=== PATIENT | female | born 1965 | race Caucasian/White ===

== ENCOUNTER 2016-06-24 13:33 | Emergency (ER) | payer MEDICARE, MEDICAID ==
[2016-06-24] MEDS ORDERED: ALPRAZolam TAB* 0.25 MG PO ONE (19:15)
[2016-06-24] MEDS ORDERED: ALPRAZolam TAB* 0.5 MG PO ONE ×2 (20:00)
[2016-06-24 20:29] VITALS: BP 134/96
--- NOTE | 2016-06-24 21:44 | ED ---
Efrain Salinas Adam, scribed for Rinku Cardona MD on 06/24/16 at 1919 . Substance Abuse/Use - HPI Summary HPI Summary: A 51 y/o female presents to the ED after not having had Xanax for 7 days. Patient is prescribed this medication and states that she dropped the remaining pills down the drain last week. She is scheduled for a refill at her PCP next week. Her symptoms include vomiting, diarrhea, unable to eat or drink, and unable to sleep for 3 nights. She denies fever. Her PMHx is positive for anxiety , depression, scleroderma, and COPD. FHx is positive for cardiac disease. - History Of Current Complaint Chief Complaint: EDSubstanceAbuse Stated Complaint: RX REFILL Time Seen by Provider: 06/24/16 19:17 Hx Obtained From: Patient Severity Initially: Moderate Severity Currently: Mild Character: Anxious Aggravating Factor(s): Other - Not taking Xanax for 7 days Alleviating Factor(s): Nothing Associated Signs And Symptoms: Vomiting, Diarrhea, Other: - Anxious, not able to eat or drink, not able to sleep for 3 days - Allergies/Home Medications Allergies/Adverse Reactions: Allergies Allergy/AdvReac Type Severity Reaction Status Date / Time Codeine Allergy Severe suicidal Verified 03/18/16 11:28 Adhesive Tape Allergy Mild pulls skin Verified 03/18/16 11:28 off PMH/Surg Hx/FS Hx/Imm Hx Endocrine/Hematology History: Reports: Other Endocrine/Hematological Disorders - scleroderma Denies: Hx Diabetes, Hx Anemia, Hx Unexplained Bleeding Cardiovascular History: Denies: Hx Aneurysm, Hx Angina, Hx Angioplasty, Hx Auto Implanted Cardiovert Defib, Hx Cardiac Arrest, Hx Cardiomegaly, Hx Congenital Heart Disease, Hx Congestive Heart Failure, Hx Coronary Artery Disease, Hx Deep Vein Thrombosis, Hx Embolism, Hx Hypercholesterolemia, Hx Hypotension, Hx Hypertension, Hx Pacemaker/ICD, Hx Peripheral Vascular Disease, Hx Rheumatic Fever, Hx Syncope, Hx Valvular Heart Disease, Other Cardiovascular Problems/Disorders Respiratory History: Reports: Hx Chronic Bronchitis, Hx Chronic Obstructive Pulmonary Disease (COPD) GI History: Denies: Other GI Disorders History: Denies: Hx Renal Disease, Other Problems/Disorders Musculoskeletal History: Reports: Hx Back Problems Denies: Hx Arthritis, Hx Bursitis, Hx Congenital Bone Abnormalities, Hx Fibromyalgia, Hx Gout, Hx Orthopedic Injury, Hx Osteoporosis, Hx Scoliosis, Hx Tendonitis, Other Musculoskeletal History Sensory History: Reports: Hx Contacts or Glasses - long distance use only Denies: Hx Cataracts, Hx Eye Injury, Hx Eye Prosthesis, Hx Glaucoma, Hx Legally Blind, Hx Macular Degeneration, Hx Vision Problem, Hx Deafness, Hx Hearing Aid, Hx Hearing Problem, Other Sensory Impairments Opthamlomology History: Reports: Hx Contacts or Glasses - long distance use only Denies: Hx Cataracts, Hx Eye Injury, Hx Eye Prosthesis, Hx Glaucoma, Hx Legally Blind, Hx Macular Degeneration, Hx Vision Problem, Other Sensory Impairments Neurological History: Denies: Other Neuro Impairments/Disorders Psychiatric History: Reports: Hx Anxiety, Hx Depression Denies: Hx Panic Disorder, Other Psychiatric Issues/Disorders - Cancer History Hx Chemotherapy: No Hx Radiation Therapy: No - Surgical History Surgery Procedure, Year, and Place: left knee arthroscopy. hysterectomy. ACL RECONSTRUCTION Hx Anesthesia Reactions: No - Immunization History Date of Tetanus Vaccine: 2013 Date of Influenza Vaccine: Fall 2013 Infectious Disease History: No Infectious Disease History: Denies: Hx of Known/Suspected MRSA, Hx Shingles, Hx Tuberculosis, Hx Known/ Suspected VRE, Hx Known/Suspected VRSA, History Other Infectious Disease, Traveled Outside the [place] in Last 30 Days - Family History Known Family History: Positive: Cardiac Disease - Social History Alcohol Use: None Substance Use Type: Reports: None Smoking Status (MU): Former Smoker Type: eCigarettes Amount Used/How Often: 1.5 ppd Length of Time of Smoking/Using Tobacco: 36 years Have You Smoked in the Last Year: No Review of Systems Constitutional: Negative Negative: Fever Eyes: Negative ENT: Negative Cardiovascular: Negative Respiratory: Negative Positive: Vomiting, Diarrhea Positive: other - Decreased appetite Musculoskeletal: Negative Skin: Negative Neurological: Negative Positive: Anxious, Other - Unable to sleep for 3 nights All Other Systems Reviewed And Are Negative: Yes Physical Exam - Summary Physical Exam Summary: General: Comfortable, pleasant, alert, HEENT: Moist mucosa Neck: soft, supple, no adenopathy, no edema Heart: S1, S2, RRR, no murmurs, rubs, or gallops Lungs: Clear to auscultation, breathing comfortable, no wheezes or rales Abdominal: Soft, flat, nontender Extremities: No edema, no calf tenderness Neuro: Alert and oriented x 3, CN II-XII intact, walks into room without wide base gait or imbalance Psych: Logical, coherent, good eye contact, no slowing or agitation Vital Signs On Initial Exam: Initial Vitals Temp Pulse Resp BP Pulse Ox 98.9 F 101 16 128/80 100 06/24/16 13:34 06/24/16 13:34 06/24/16 13:34 06/24/16 13:34 06/24/16 13:34 Diagnostics - Vital Signs Vital Signs Temp Pulse Resp BP Pulse Ox 06/24/16 18:38 98.8 F 90 20 136/83 100 06/24/16 17:41 99.0 F 92 20 122/75 99 06/24/16 16:32 98.2 F 87 20 142/73 98 06/24/16 15:40 97.6 F 85 20 139/71 97 06/24/16 13:34 98.9 F 101 16 128/80 100 - Laboratory Lab Statement: Any lab studies that have been ordered have been reviewed, and results considered in the medical decision making process. - EKG 13:40 Cardiac Rate: NL - 85 EKG Rhythm: Sinus Rhythm ST Segment: Normal Course/Dx - Course Assessment/Plan: She presents without having had xanax for about a week. She is anxious with poor sleep and is due to get a refill next week at PCP's office. We will give her one pill now, and one to go home with. She mentions withdrawl symptoms, however, vital signs, mentation, mental status all suggest uncomplicated withdrawl. - Diagnoses Differential Diagnosis/HQI/PQRI: Positive: Alcohol Withdrawal, Bipolar Disorder , Depression, Drug Abuse, Drug Withdrawal, Suicidal Risk Provider Diagnoses: Benzodiazepine withdrawal Discharge - Discharge Plan Condition: Good Disposition: HOME Patient Education Materials: Anxiety (ED) Referrals: Rafita Weems MD [Primary Care Provider] - The documentation as recorded by the Efrain umana Adam accurately reflects the service I personally performed and the decisions made by me, Rinku Cardona MD.
== END 2016-06-24 20:15 | disposition home or self-care (01) ==
LOC: ED 13:33
DX: F13.239 Sedative, hypnotic or anxiolytic dependence with withdrawal, unspecified (principal); T42.4X5A Adverse effect of benzodiazepines, initial encounter; Y92.9 Unspecified place or not applicable; F17.210 Nicotine dependence, cigarettes, uncomplicated; F41.9 Anxiety disorder, unspecified; J44.9 Chronic obstructive pulmonary disease, unspecified; M34.9 Systemic sclerosis, unspecified; Z88.5 Allergy status to narcotic agent
CPT/HCPCS: 93005; 99282; A9270-GY

== ENCOUNTER 2017-02-12 10:52 | Inpatient (IN) | payer MEDICARE, MEDICAID ==
--- NOTE | 2017-02-06 23:06 | HP ---
HISTORY AND PHYSICAL: DATE OF SURGERY: 02/12/17 DATE OF OFFICE VISIT: 02/06/17 SURGEON: Opal Ace MD * (DICTATED BY JANETH MOMIN) PROCEDURE: Right total knee arthroplasty. CHIEF COMPLAINT: Right knee pain. HISTORY OF PRESENT ILLNESS: Ms. Culver is a 51-year-old female with complaints of right knee pain secondary to end-stage osteoarthritis. She has failed conservative management and has elected to proceed with a right total knee arthroplasty. PAST MEDICAL HISTORY: 1. Hypertension. 2. COPD. 3. GERD. 4. Scleroderma. 5. Aortic stenosis. PAST SURGICAL HISTORY: 1. Hysterectomy. 2. Breast biopsy. 3. Left knee ACL reconstruction. MEDICATIONS: 1. Probiotic acidophilus. 2. Prochlorperazine maleate 10 mg. 3. Methotrexate 2.5 mg 6 tabs by mouth every week. 4. Oxygen as needed. 5. Aleve as needed. 6. Hydroxychloroquine sulfate 200 mg twice daily. 7. Folic acid every day. 8. Lexapro 20 mg every day. 9. Ambien 10 mg q.h.s. 10. Xanax 0.5 mg 3 times a day as needed. 11. MS Contin 10 mg every 8 hours as needed. 12. Famotidine 20 mg twice daily. 13. Triamterene and hydrochlorothiazide 37.5-25 mg every day. 14. Advair Diskus. 15. Albuterol sulfate. 16. Morphine sulfate 30 mg 2 tabs up to 5 times daily. 17. Alclometasone dipropionate. 18. Furosemide 20 mg 2 tabs everyday. 19. Potassium chloride. 20. . 21. Mirtazapine. 22. Nebulizer. 23. Lovastatin 10 mg daily. 24. Polyethylene glycol. 25. Olopatadine hydrochloride ophthalmic solution. ALLERGIES: To CODEINE, which causes suicidal ideations and ULTRACET. FAMILY HISTORY: Cancer, diabetes, and hypertension. SOCIAL HISTORY: She is a 51-year-old female, she lives alone. She does not smoke, use drugs or alcohol. REVIEW OF SYSTEMS: A complete 14-point review of systems is reviewed with the patient, was all negative or noncontributory. PHYSICAL EXAMINATION GENERAL: She is well developed, well nourished, in no acute distress. VITAL SIGNS: She stands 5 feet 7 inches tall, weighs 260 pounds, her blood pressure is 132/73, her heart rate is 104. HEENT: Normocephalic, atraumatic. NECK: Supple. No palpable lymph nodes. PULMONARY: Lungs are clear to auscultation bilaterally. CARDIO: Regular rate and rhythm. Strong S1 and S2. ABDOMEN: Soft, nontender, and nondistended. NEUROLOGIC: She is alert and oriented x3. Cranial nerves II through XII are intact. MUSCULOSKELETAL: Right lower extremity, the skin is intact. There are no open wounds or abrasions. She has tenderness over the medial and lateral joint line. Her lower extremity muscle group strength is intact at 5/5. She has 2+ dorsalis pedis pulses and intact sensation. IMPRESSION AND PLAN: Ms. Culver is 51-year-old female with complaints of right knee pain secondary to advanced osteoarthritis. She has failed conservative management and has elected to proceed with a right total knee arthroplasty, which is scheduled for 02/12/17, with Dr. Ace. Dr. Ace discussed the risks and benefits of the surgery and all of her questions were answered. She will follow up with Dr. Ace in 2 weeks after the surgery. JANETH MOMIN [id number]/[facility] #: [id number] [facility] PARTNERSKevin
[~2017-02-12 10:52] MED LIST: Buffered Lidocaine 0.9% SYRIN* 5 ML/SYR SYRINGE INTRADERM ONE; Famotidine IV* 10 MG/ML 2 ML (20 mg) IV ONE; Morphine INJ* 2 MG/ML 1 ML CARPUJECT IV PRN; PROCHLORPERAZINE INJ 5 MG/ML 2 ML VIAL IV PRN; fentaNYL* 50 MCG/ML 2 ML VIAL (100 MCG VIAL) IV PRN
[2017-02-12] MEDS ORDERED: Famotidine IV* 10 MG/ML 2 ML (20 mg) ONE (10:56)
[2017-02-12] MEDS ORDERED: Buffered Lidocaine 0.9% SYRIN* 5 ML/SYR SYRINGE ONE (10:56)
[2017-02-12] MEDS ORDERED: ceFAZolin 2 GM PREMIX (*) 50 ML IVPB ONE (10:56)
[2017-02-12] MEDS ORDERED: Midazolam* 1 MG/ML 10 ML VIAL (10 MG) ONE (11:50)
[2017-02-12] MEDS ORDERED: fentaNYL* 50 MCG/ML 2 ML VIAL (100 MCG VIAL) ONE (11:50)
[2017-02-12] MEDS ORDERED: KETAMINE HCL* 50 MG/ML 10 ML VIAL ONE (11:50)
[2017-02-12] MEDS ORDERED: Mouth Piece, Nicotine* 1 EACH CARTRIDGE INH ONE (13:00)
[2017-02-12] MEDS ORDERED: Nicotine Inhaler* 10 MG AMP INH ONE (13:00)
[2017-02-12] MEDS ORDERED: Midazolam* 1 MG/ML 5 ML VIAL (5 MG) ONE (14:02)
[2017-02-12] MEDS ORDERED: Morphine INJ* 10 MG/ML 1 ML CARPUJECT ONE (14:03)
[2017-02-12] MEDS ORDERED: Hetastarch in NS* 200 ML IV PRN (14:24)
[2017-02-12] MEDS ORDERED: Ondansetron INJ* 2 MG/ML VIAL IV PRN (14:24)
[2017-02-12] MEDS ORDERED: Lactated Ringers 500 ml BAG* 500 ML IV PRN (14:24)
[2017-02-12] MEDS ORDERED: EPHEDrine (Pressors)* 50 MG/ML VIAL IV PUSH PRN (14:24)
[2017-02-12] MEDS ORDERED: PROCHLORPERAZINE INJ 5 MG/ML 2 ML VIAL IV PRN (14:24)
[2017-02-12] MEDS ORDERED: Ropivacaine 0.2% EPIDURAL* 200 MG/100 ML BAG EPIDURAL SCH (15:00)
[2017-02-12] MEDS ORDERED: Hetastarch in NS* 500 ML IV ONE (15:15)
[2017-02-12] MEDS ORDERED: Ropivacaine 0.2% EPIDURAL* 200 MG/100 ML BAG EPIDURAL ONE (15:44)
[2017-02-12 16:01] LABS: BUN/Creatinine Ratio 16.9 (8-20); Calcium 9.5 mg/dL (8.6-10.3); EGFR African American 61.6 (>60); EGFR Non-African American 47.9 (>60); Potassium 3.6 mmol/L (3.5-5.0)
[2017-02-12] MEDS ORDERED: diPHENhydraMINE IV* 50 MG/ML 1 ml VIAL (BENADRYL) IV PRN (16:23)
[2017-02-12] MEDS ORDERED: Magnesium Hydroxide LIQ* 30 ML UDC PO PRN (16:23)
[2017-02-12] MEDS ORDERED: Polyethylene Glycol 3350* 17 GM PACKET PO PRN (16:23)
[2017-02-12] MEDS ORDERED: Bisacodyl SUPP* 10 MG SUPP PR PRN (16:23)
[2017-02-12] MEDS ORDERED: Phenylephrine INJ* 10 MG/ML 1 ML VIAL (10 MG) ONE (16:24)
[2017-02-12] MEDS ORDERED: Lidocaine 2% PF * 5 ML VIAL ONE (16:24)
[2017-02-12] MEDS ORDERED: Polyethylene Glycol 3350 BTL* 238 GM BTL PO PRN (16:31)
[2017-02-12] MEDS ORDERED: Albuterol HFA INHALER* 8 gm MDI INH PRN (16:31)
[2017-02-12] MEDS ORDERED: Albuterol 2.5 MG/3 ML NEB.SOL* (0.083%) INH PRN (16:31)
[2017-02-12] MEDS ORDERED: ceFAZolin 1 GM VIAL(*) 1 GM in NS 0.9% 50 ML* 50 ML IVPB SCH (17:00)
--- NOTE | 2017-02-12 17:04 | RAD ---
INDICATION: Status post right total knee arthroplasty COMPARISON: November 14, 2016 TECHNIQUE: A portable 2 view examination is submitted were obtained. FINDINGS: There is right knee arthroplasty. Both femoral and tibial components appear well seated. There is no overlying cooling jacket. IMPRESSION: POSTOPERATIVE RIGHT KNEE ARTHROPLASTY.
--- NOTE | 2017-02-12 19:04 | RAD ---
INDICATION: Right shoulder pain COMPARISON: None TECHNIQUE: Routine frontal, Y and axial views were obtained. FINDINGS: There is AC joint osteoarthritis. There is minor spurring about the inferior glenoid. There is no evidence of dislocation or subluxation. The soft tissues are normal. IMPRESSION: MILD A.C. AND GLENOHUMERAL OSTEOARTHRITIS.
[2017-02-12] MEDS ORDERED: Warfarin TAB(*) 6 MG PO ONE (21:00)
[2017-02-12] MEDS: ceFAZolin 1 GM in Dextrose (*) 1 GM/50 ML BAG IVPB SCH (21:55)
--- NOTE | 2017-02-12 21:59 | CONS ---
CC: Dr. Weems * CONSULTATION REPORT: REFERRING PHYSICIAN: Dr. Opal Ace. PRIMARY CARE DOCTOR: Dr. Weems. MY ATTENDING PHYSICIAN WHILE IN THE HOSPITAL: Dr. Jayla Beltran (DICTATED BY JANETH SPENCE) REASON FOR CONSULTATION: Co-management of comorbid medical conditions. HISTORY OF PRESENT ILLNESS: Ms. Culver is a 51-year-old female with past medical history significant for hypertension, COPD, scleroderma, and aortic stenosis, who is currently postoperative for a right total knee arthroplasty. The patient states she is feeling good, her only pain is in her shoulder, which is preexisting from 2 mechanical falls earlier this month. The patient's pain in her surgical site is well controlled with spinal anesthesia. The patient has no feeling from waist down. The patient denies shortness of breath, chest pain, numbness or tingling in her hands or feet, abdominal pain, recent illnesses, fevers, chills, nausea or vomiting, change in vision or dizziness. EBL for the surgery was 300. There were no other complications. The patient states she took all of the medications that are normally scheduled for her this morning including her antihypertensive Diazide. The patient denies history of diabetes or hepatitis. PAST MEDICAL HISTORY: Hypertension, COPD, GERD, scleroderma, aortic stenosis and insufficiency, osteoarthritis. PAST SURGICAL HISTORY: Hysterectomy, breast biopsy, left knee ACL reconstruction. MEDICATIONS: 1. Probiotic acidophilus. 2. Prochlorperazine maleate 10 mg p.o. daily. 3. Methotrexate 2.5 mg 6 tabs by mouth every week. 4. Oxygen 4 L at night. 5. Hydroxychloroquine sulfate 200 mg b.i.d. 6. Folic acid daily. 7. Lexapro 20 mg daily. 8. Ambien 10 mg at night as needed. 9. Xanax 0.5 mg 3 times a day as needed. 10. MS Contin 10 mg every 8 hours as needed. 11. Famotidine 20 mg twice daily. 12. Triamterene/hydrochlorothiazide 37.5/25 mg everyday. 13. Advair Diskus 1 puff b.i.d. 14. Albuterol inhaler as needed. 15. Morphine sulfate 30 mg 2 tabs up to 5 times daily. 16. Alclometasone dipropionate 1% topically daily as needed. 17. Furosemide 40 mg daily. 18. Potassium chloride 8 mcg b.i.d. 19. Pravastatin 10 mg p.o. daily. 20. Polyethylene glycol as needed for constipation. 21. Olopatadine ophthalmic solution 1 drop to each eye daily. 22. Pentoxifylline 400 mg p.o. t.i.d. 23. Remeron 15 mg p.o. at bedtime. ALLERGIES: The patient has allergies to CODEINE, ULTRACET, LATEX and ADHESIVE TAPE. FAMILY HISTORY: The patient has family history of cancer, diabetes, and hypertension, cirrhosis, and celiac disease. SOCIAL HISTORY: The patient lives alone. She is on disability from her scleroderma. She drinks 4 cups of coffee a day. She smokes e-cigarettes. The patient denies occasional alcohol use and does not use illicit drugs. REVIEW OF SYSTEMS: A 14-point review of systems was completed. Please see all pertinent positives and negatives in the HPI. PHYSICAL EXAMINATION: Vital Signs: Temperature at 11 this morning 96.8, heart rate now 71, oxygen saturation 93%, respiratory rate 13, blood pressure 127/57. The patient is on 4 L of oxygen. General: The patient is a 51-year-old female, who appears her stated age, is lying comfortably in the stretcher in the PACU, texting on her cellphone. HEENT: Normocephalic, atraumatic. Sclerae anicteric. No conjunctival injection. Pharynx nonerythematous. Mucous membranes moist. Neck: Supple, nontender. No lymphadenopathy. No carotid bruit auscultated. Cardiac: Regular rate and rhythm. Grade 2/6 systolic murmur heard best at the right sternal border at the second intercostal space appreciated without radiation. Pulses +2 radial, dorsalis pedis, and posterior tibialis areas. No edema. Pulmonary: Clear to auscultation bilaterally. No wheezes, rales, rhonchi. Good air exchange bilaterally. Abdomen: Obese, soft, nontender, nondistended. Bowel sounds present in all 4 quadrants. Liver and spleen could not be palpated due to the patient's body habitus. Neurologic: The patient is alert and oriented x3. Cranial nerves II through XII are grossly intact. The patient's beam builder helper strength is 5/5 and equal bilaterally. Skin: The patient has rash on the face with telangiectasias. Skin otherwise pink, dry, and intact. Musculoskeletal: The patient has significant pain with movement in all planes of motion of her right shoulder and tenderness to palpation over the supraspinatus tendon and the glenoid labrum. No popping or instability noted on exam. Exam limited by pain. LABORATORY RESULTS: On morning of 02/12/17, sodium 140, potassium 3.6, chloride 101, carbon dioxide 32, anion gap 7, BUN 20, creatinine 1.18, glucose 88, calcium 9.5. IMPRESSION: The patient is a 51-year-old female, past medical history significant for chronic obstructive pulmonary disease, hypertension, scleroderma , aortic stenosis/insufficiency, and osteoarthritis, who was doing well postoperatively from her right total knee arthroplasty. 1. Postop state. The patient is doing well, is normotensive, pain control with oxycodone and Tylenol. Bowel regimen with polyethylene glycol and Colace. DVT prophylaxis with Lovenox 30 mg subcutaneous daily and bridged to warfarin. 2. Hypertension. Continue the patient's Dyazide and Lasix every morning. 3. Chronic obstructive pulmonary disease. Continue the patient's home nocturnal oxygen therapy at 4 L at night. Continue Advair Diskus home dose and albuterol nebulizations as needed for shortness of breath and wheezing. The patient is not wheezing at this time. 4. Scleroderma. Continue the patient's home immunosuppressive medications including methotrexate and hydroxychloroquine. I will order a CRP with the morning labs to assess for level of inflammation. 5. Gastroesophageal reflux disease. Continue the patient's home famotidine. 6. Aortic stenosis. The patient has no signs or symptoms indicative of congestive heart failure. Aortic stenosis murmur, minor on exam. The patient had ejection fraction of 60 on an echo in the preop period before she was cleared for surgery by her equalizing saw operator. 7. FEN. The patient is on lactated Ringer's at 100. The patient is NPO with sips and a regular diet starting tonight with dinner. 8. DVT prophylaxis. The patient is on renally dosed Lovenox and is being transitioned to warfarin. 9. SCDs while in bed. 10. Code status: The patient is a full code. DISPOSITION: Per primary team. TIME SPENT: Approximately 60 minutes were spent on this consult, 30 of which was spent [id number] with the patient obtaining history and physical with the patient. This plan has been discussed with my attending, Dr. Jayla Beltran. JANETH SPENCE [id number]/[facility] #: [id number] MARIANNE
[2017-02-12] MEDS: oxyCODONE TAB* 5 MG TAB PO PRN (22:18)
[2017-02-12] MEDS: Docusate CAP* 100 MG PO SCH (22:18)
[2017-02-12] MEDS: Hydroxychloroquine TAB* 200 MG PO SCH (22:19)
[2017-02-12] MEDS: Mometasone/Formoter 200/5 MDI INH SCH (22:19)
[2017-02-13] MEDS: oxyCODONE TAB* 5 MG TAB PO PRN ×5 (05:13→21:22)
[2017-02-13] MEDS ORDERED: Ondansetron TAB* 4 MG PO PRN (06:01)
[2017-02-13] MEDS: ceFAZolin 1 GM in Dextrose (*) 1 GM/50 ML BAG IVPB SCH ×2 (06:11→13:20)
--- NOTE | 2017-02-13 07:34 | PN ---
Progress Note - Progress Note Date of Service: 02/13/17 SOAP: Subjective: Pt. is alert, pain controlled. Objective: RLE - drain removed, tip intact. 200 cc ss drainage. distally +df/pf, full sens lt, 2+ dp pulse. Vital Signs: Temp Pulse Resp BP Pulse Ox 97.8 F 71 15 110/55 97 02/13/17 03:58 02/13/17 03:58 02/13/17 05:13 02/13/17 03:58 02/13/17 03:58 Laboratory Results - last 24 hr 02/12/17 15:24 Sodium 140 Potassium 3.6 Chloride 101 Carbon Dioxide 32 Anion Gap 7 BUN 20 Creatinine 1.18 H Est GFR ( Amer) 61.6 Est GFR (Non-Af Amer) 47.9 BUN/Creatinine Ratio 16.9 Glucose 88 Calcium 9.5 Assessment: 51 yo F pod 1 s/p RTKA Plan: need med consult wbat rle pt/ot will check labs lovenox today, coumadin tonight. plan d/c to home tomorrow 02/14
[2017-02-13] MEDS: Docusate CAP* 100 MG PO SCH ×2 (07:53→21:24)
[2017-02-13] MEDS: Triamterene/HCTZ 37.5-25 MG* CAP PO SCH (07:53)
[2017-02-13] MEDS: Hydroxychloroquine TAB* 200 MG PO SCH ×2 (07:53→21:24)
[2017-02-13] MEDS: Omeprazole CAP* 20 MG PO SCH (07:53)
[2017-02-13] MEDS: Citalopram TAB* 40 MG PO SCH (07:54)
[2017-02-13] MEDS: ALPRAZolam TAB* 0.5 MG PO SCH ×3 (07:54→21:24)
[2017-02-13] MEDS: Famotidine TAB* 20 MG PO SCH (07:54)
[2017-02-13] MEDS: Prochlorperazine TAB* 10 MG PO SCH ×2 (07:54→21:24)
[2017-02-13] MEDS: Furosemide TAB* 40 MG PO SCH (07:54)
[2017-02-13] MEDS: Olopatadine 0.1% OPHTH (NF) 1 DROP BTL BOTH EYES SCH (07:55)
[2017-02-13] MEDS: Mometasone/Formoter 200/5 MDI INH SCH ×2 (07:56→20:05)
[2017-02-13] MEDS: Hydrocortisone 1% CREAM* 30 GM TUBE TOPICAL SCH (07:56)
[2017-02-13] MEDS ORDERED: Nicotine Inhaler* 10 MG AMP ONE (08:00)
[2017-02-13] MEDS ORDERED: Nicotine Inhaler* 10 MG AMP INH PRN (08:02)
[2017-02-13 08:43] LABS: Hematocrit 29 % (35-47); Hemoglobin 9.3 g/dl (12.0-16.0); Mean Corpuscular HGB Conc 32 g/dl (31-36); Mean Corpuscular Hemoglobin 27 pg (27-31); Mean Corpuscular Volume 86 fL (80-97); Mean Platelet Volume 7 um3 (7.4-10.4); Red Blood Count 3.38 10^6/ul (4.0-5.4); Red Cell Distribution Width 17 % (10.5-15); White Blood Count 11.2 10^3/ul (3.5-10.8)
[2017-02-13] MEDS: Morphine INJ* 4 MG/ML 1 ML CARPUJECT IV PRN (08:47)
[2017-02-13 09:01] LABS: BUN/Creatinine Ratio 18.6 (8-20); Calcium 8.9 mg/dL (8.6-10.3); EGFR African American 72.9 (>60); EGFR Non-African American 56.7 (>60); Potassium 3.5 mmol/L (3.5-5.0)
[2017-02-13] MEDS ORDERED: HYDROmorphone INJ* 1 MG/ML CARPUJECT SYRINGE ONE (10:17)
[2017-02-13] MEDS: HYDROmorphone INJ* 1 MG/ML CARPUJECT SYRINGE IV SLOW PU PRN ×4 (14:26→22:47)
[2017-02-13] MEDS: Enoxaparin(*) 30 MG/0.3 ML SYR SUBCUT SCH (15:01)
--- NOTE | 2017-02-13 15:57 | PN ---
Subjective Date of Service: 02/13/17 Interval History: Patient seen and examined at bedside. Pt states that her pain is controlled. Denies fever, chills, shortness of breath, chest discomfort, N/V/D. Pt continues to report left shoulder pain, this has been an issue for 2 months since she had a fall. She has full range of motion. Family History: Unchanged from Admission Social History: Unchanged from Admission Past Medical History: Unchanged from Admission Objective Active Medications: Albuterol (Ventolin 2.5 Mg/3 Ml Neb.Obdulia*) 2.5 mg INH Q4HR PRN Reason: SOB/ WHEEZING Albuterol (Ventolin Hfa Inhaler*) 2 puff INH Q4H PRN Reason: SOB/WHEEZING Alprazolam (Xanax Tab*) 0.5 mg PO 1200 NADEEM Alprazolam (Xanax Tab*) 1 mg PO BID NADEEM Bisacodyl (Dulcolax Supp*) 10 mg [place] DAILY PRN Reason: constipation Citalopram Hydrobromide (Celexa Tab*) 40 mg PO QAM NADEEM Diphenhydramine HCl (Benadryl Iv*) 12.5 mg IV Q6H PRN Reason: PRURITIS Docusate Sodium (Colace Cap*) 100 mg PO BID NADEEM Enoxaparin Sodium (Lovenox(*)) 30 mg SUBCUT Q24H NADEEM Famotidine (Pepcid Tab*) 20 mg PO QAM NADE[place] Furosemide (Lasix Tab*) 40 mg PO QAM NADEEM Hydrocortisone (Hytone Cream 1%*) 1 applic TOPICAL DAILY NADEEM Hydromorphone HCl (Dilaudid Iv*) 1 mg IV SLOW PU Q4H PRN Reason: PAIN Hydroxychloroquine Sulfate (Plaquenil Tab*) 200 mg PO BID NADEEM Lactated Ringer's (Lactated Ringers 500 Ml Bag*) 500 mls @ 2,000 mls/hr IV ONCE PRN Reason: FOR SBP < 90 Lactated Ringer's (Lactated Ringers 1000 Ml Bag*) 1,000 mls @ 100 mls/hr IV PER RATE NADEEM Lactulose (Lactulose*) 30 ml PO Q6H PRN Reason: constipation Magnesium Hydroxide (Milk Of Magnesia Liq*) 30 ml PO Q6H PRN Reason: constipation Methotrexate (Methotrexate Tab*) 15 mg PO Mo NADEEM Mometasone Furoate/Formoterol Fumar (Dulera 200/5 Mdi*) 2 puff INH BID N[place] Morphine Sulfate (Morphine Inj (Syringe)*) 4 mg IV Q2H PRN Reason: PAIN Nicotine (Nicotine Inhaler*) 10 mg INH Q2H PRN Reason: CRAVING Olopatadine HCl (Patanol 0.1% Ophth (Nf)) 1 drop BOTH EYES QAM NADE[place] Reason: Protocol Omeprazole (Prilosec Cap*) 20 mg PO QAM@0730 [facility] Ondansetron HCl (Zofran Tab*) 4 mg PO Q6H PRN Reason: NAUSEA Oxycodone HCl (Roxycodone Tab*) 10 mg PO Q4H PRN Reason: SEVERE PAIN Pharmacy Profile Note (Coumadin Daily Reminder*) 1 note FOLLOW UP 1700 [facility] Polyethylene Glycol/Electrolytes (Miralax*) 17 gm PO DAILY PRN Reason: Constipation Prochlorperazine (Compazine Tab*) 10 mg PO BID NADEEM Triamterene/HCTZ (Dyazide Cap*) 1 cap PO QAM [facility] Warfarin Sodium (Coumadin Tab(*)) 8 mg PO ONCE@1700 ONE Stop: 02/13/17 17:01 Vital Signs 02/12/17 02/12/17 02/12/17 16:27 16:30 16:35 Temperature 99.3 F Pulse Rate 80 81 71 Respiratory 16 13 13 Rate Blood Pressure 115/77 106/79 122/59 (mmHg) O2 Sat by Pulse 97 97 97 Oximetry 02/12/17 02/12/17 02/12/17 16:40 16:45 17:00 Temperature Pulse Rate 111 72 70 Respiratory 15 15 13 Rate Blood Pressure 112/99 111/56 130/60 (mmHg) O2 Sat by Pulse 95 94 94 Oximetry 02/12/17 02/12/17 02/12/17 17:15 17:30 17:45 Temperature Pulse Rate 71 71 68 Respiratory 12 12 14 Rate Blood Pressure 121/59 120/57 121/64 (mmHg) O2 Sat by Pulse 93 92 96 Oximetry 02/12/17 02/12/17 02/12/17 18:01 18:15 18:30 Temperature 97.9 F Pulse Rate 71 67 74 Respiratory 12 12 12 Rate Blood Pressure 125/60 125/75 154/83 (mmHg) O2 Sat by Pulse 92 96 98 Oximetry 02/12/17 02/12/17 02/12/17 18:45 19:01 19:02 Temperature 98.1 F Pulse Rate 77 70 Respiratory 13 16 15 Rate Blood Pressure 139/57 141/58 (mmHg) O2 Sat by Pulse 93 96 Oximetry 02/12/17 02/12/17 02/12/17 19:50 20:59 22:18 Temperature 99.3 F 98.0 F Pulse Rate 84 89 Respiratory 12 17 14 Rate Blood Pressure 124/56 125/53 (mmHg) O2 Sat by Pulse 98 97 Oximetry 02/12/17 02/13/17 02/13/17 23:34 00:18 01:23 Temperature 98.8 F Pulse Rate 80 Respiratory 16 15 16 Rate Blood Pressure 120/55 (mmHg) O2 Sat by Pulse 96 Oximetry 02/13/17 02/13/17 02/13/17 02:07 03:58 05:13 Temperature 97.8 F Pulse Rate 71 Respiratory 20 15 Rate Blood Pressure 110/55 (mmHg) O2 Sat by Pulse 96 97 Oximetry 02/13/17 02/13/17 02/13/17 07:13 07:37 07:38 Temperature 97.9 F Pulse Rate 73 Respiratory 18 14 Rate Blood Pressure 117/42 (mmHg) O2 Sat by Pulse 93 97 Oximetry 02/13/17 02/13/17 02/13/17 07:54 08:00 08:47 Temperature Pulse Rate Respiratory 20 22 18 Rate Blood Pressure (mmHg) O2 Sat by Pulse 97 Oximetry 02/13/17 02/13/17 02/13/17 11:27 12:16 13:20 Temperature 97.6 F Pulse Rate 87 Respiratory 16 20 18 Rate Blood Pressure 125/62 (mmHg) O2 Sat by Pulse 96 Oximetry Oxygen Devices in Use Now: None Appearance: NAD, sitting up in a chair Ears/Nose/Mouth/Throat: Mucous Membranes Moist Respiratory: Symmetrical Chest Expansion and Respiratory Effort, Clear to Auscultation Cardiovascular: RRR, - - Grade 2-3/6 systolic murmur heard best at the right upper sternal border Abdominal: NL Sounds; No Tenderness; No Distention Extremities: No Edema Skin: No Rash or Ulcers Neurological: Alert and Oriented x 3, NL Muscle Strength and Tone Lines/Tubes/Other Access: Clean, Dry and Intact Peripheral IV - site benign Nutrition: Taking PO's Result Diagrams: 02/13/17 08:07 02/13/17 08:07 Assess/Plan/Problems-Billing Assessment: Ms. Culver is a 51 yo female with PMH significant for HTN, COPD, GERD, scleroderma and osteoarthritis who presented to the hospital for an elective right total knee arthroplasty. - Patient Problems (1) Status post total right knee replacement Code(s): Z96.651 - PRESENCE OF RIGHT ARTIFICIAL KNEE JOINT SNOMED Code(s): 2205885279686 Comment: - POD #1, management per orthopedics - Trend HH - Continue PT/OT, pain control, and bowel regimen (2) HTN (hypertension) Code(s): I10 - ESSENTIAL (PRIMARY) HYPERTENSION SNOMED Code(s): 38006596 Comment: - Normotensive - Continue Lasix and Dyazide (3) COPD (chronic obstructive pulmonary disease) Code(s): J44.9 - CHRONIC OBSTRUCTIVE PULMONARY DISEASE, UNSPECIFIED SNOMED Code(s): 88297270 Comment: - No signs of exacerbation at this time - Continue O2 @ 4L via NC overnight, this is Pt's baseline - Continue advair and albuterol nebs PRN (4) GERD (gastroesophageal reflux disease) Code(s): K21.9 - GASTRO-ESOPHAGEAL REFLUX DISEASE WITHOUT ESOPHAGITIS SNOMED Code(s): 462473415 Comment: - Continue famotidine (5) Aortic stenosis Code(s): I35.0 - NONRHEUMATIC AORTIC (VALVE) STENOSIS SNOMED Code(s): 88134100 Comment: (6) Scleroderma Code(s): M34.9 - SYSTEMIC SCLEROSIS, UNSPECIFIED SNOMED Code(s): 46303704 Comment: - Continue methotrexate and hydroxychloroquine. (7) CKD (chronic kidney disease) Code(s): N18.9 - CHRONIC KIDNEY DISEASE, UNSPECIFIED SNOMED Code(s): 667256204 Comment: - Appears to be at baseline - Stage 3 (8) Left shoulder pain Code(s): M25.512 - PAIN IN LEFT SHOULDER SNOMED Code(s): 35351075 Comment: - Pt fell about 2 months ago and has been having pain since - Xray shows mild AC and glenohumeral osteoarthritis - Pt encouraged to do gentle range of motion of the left shoulder - Follow-up outpatient with ortho if pain persists (9) DVT prophylaxis Code(s): XWE8729 - SNOMED Code(s): 428167909 Comment: - Lovenox bridge to warfarin nper Ortho (10) Full code status Code(s): Z78.9 - OTHER SPECIFIED HEALTH STATUS SNOMED Code(s): 116175240 Status and Disposition: Inpatient. Discharge per Orthopedics. Thank you for this consult. We will sign offf at this time, please call with any questions.
[2017-02-13] MEDS ORDERED: Warfarin TAB(*) 4 MG PO ONE (17:00)
[2017-02-14] MEDS: Morphine INJ* 4 MG/ML 1 ML CARPUJECT IV PRN ×3 (00:25→06:39)
--- NOTE | 2017-02-14 01:21 | OP ---
OPERATIVE NOTE: DATE OF OPERATION: 02/12/17 DATE OF : 61 ATTENDING SURGEON: Opal Ace MD MATERIAL COORDINATOR: JANETH Cordero Ms. Traylor did help throughout the procedure with preparation of the leg, wound retraction, manipul ation of the knee, and wound closure. ANESTHESIOLOGIST: Dr. Del Angel. ANESTHESIA: Spinal. PRE-OP DIAGNOSIS: Severe end-stage degenerative osteoarthritis of the right knee joint. POST-OP DIAGNOSIS: Severe end-stage degenerative osteoarthritis of the right knee joint. OPERATIVE PROCEDURE: Right total knee arthroplasty. COMPLICATIONS: None. EBL: 400 cc. TOURNIQUET TIME: 57 minutes. SPECIMEN: Bone and cartilage from the right knee joint, sent to Pathology. HARDWARE: This is cemented [employer] total knee hardware. Two packages of Simplex bone ceme nt were used. For the femur, a right 5 narrow posterior stabilized Oxinium femoral component. For the tibia, a size 3 right tibial baseplate. For the insert, a 9-mm posterior stabilized articular i nsert, size 3-4. For the patella, a 32-mm, 3-peg all poly patella with 7.5 thickness. BRIEF HISTORY/INDICATION: Ms. Culver is a 51-year-old female with severe right knee pain. She faile d conservative treatment with antiinflammatories, pain medication, intraarticular injections, and ph ysical therapy. Due to severe pain and decreased quality of life, she elected to proceed with right total knee arthroplasty. She was cleared medically. Informed consent was obtained from the patien t. She understood the risks of the procedure included but were not limited to bleeding, infection, damage to nearby structures, continued pain, need for further surgery, intraoperative fracture, nerv e palsy, hardware failure or loosening, knee stiffness, loss of motion, stroke, heart attack, blood clot, and . She wished to proceed. INTRAOPERATIVE FINDINGS: Intraoperatively, the patient was noted to have severe tricompartmental lo ss of cartilage. She had significant osteophyte formation. DESCRIPTION OF PROCEDURE: Ms. Culver was identified in the preanesthesia unit. Her right lower extr emity was marked as the correct operative site. Informed consent was signed and placed in the chart . The patient was taken to the operating room and placed under spinal anesthesia. A Olson catheter was placed. A tourniquet was placed on the right thigh. Right lower extremity was prepped and cynthia ped in the usual sterile fashion. Preop time-out was made to correctly identify the patient, side a nd site. Appropriate perioperative antibiotics were given within 1 hour of incision. Tourniquet was inflated and total tourniquet time for this procedure was 57 minutes. A 12-cm midlin e incision was made with a 10-blade and carried down to the extensor mechanism. A new 10-blade was used to make a standard medial parapatellar arthrotomy. Patella was subluxed laterally. Electrocau laurel was used to subperiosteally elevate the soft tissue off the superomedial tibia. The knee was f lexed up. The anterior horn of the lateral meniscus and ACL were sharply released. A drill was use d to enter the distal femur. Intramedullary distal femoral cutting guide was pinned on the distal f emur. 9 mm of distal femoral bone was carefully removed with the oscillating saw. External rotatio n guide was pinned on the distal femur and the distal femur was sized to a size 5. Size 5 multi- cu tting jig was pinned on the distal femur. Oscillating saw was used to make appropriate 4 chamfer cu ts. The PCL was completely released. The tibia was subluxed anteriorly. Extramedullary tibial cutting g uide was pinned on the proximal tibia. Oscillating saw was used to make the proximal tibial cut per pendicular to the mechanical axis of the tibia. Any remaining osteophyte was removed from around th e tibial bone. The proximal tibial bone cut was carefully removed. The knee was brought out to full extension. A spacer block had good fit. There was good medial and lateral ligamentous balancing. Good flexion and extension gap balancing. The knee was flexed up. Lamina nutrition teacher was placed both medially and laterally. Any remaining menis cus was carefully removed using electrocautery. Curved osteotome was used to remove any posterior o steophytes. Tibial tray and drop reyes were placed to ensure satisfactory tibial cut. This was confi rmed. Next, a narrow right size 5 trial was impacted onto the distal femur. This trial had good fi t. The box for the posterior stabilized implant was prepared using a reamer and box cut osteotome. Trial size 3 tibial tray and trial 9-mm insert were placed. The knee was taken through range of mot ion. The knee had full extension to 130 degrees of flexion with satisfactory patellofemoral trackin g. Patella was everted. 7-mm of patellar bone and cartilage was carefully removed with an oscillat ing saw. Patella was sized to a size 32 and any osteophytes were carefully removed. Three peg holes were drilled through the size 32 guide. The 32 trial patella with 7.5 thickness was placed and the knee was taken through range of motion. There was satisfactory patellofemoral tracking. All trials were carefully removed. The tibia was subluxed anteriorly and sized to a size 3. Proxim al tibia was prepared using a size 3 keel punch. All bony cut surfaces were copiously irrigated wit h sterile saline and dried. Final implants were cemented into place, starting with the tibia, follo wed by the femur and last the patella. A 9-mm insert trial was placed while the knee was brought ou t into full extension. The tourniquet was turned down at 57 minutes. The knee was copiously irrigated with sterile saline. Once the cement had fully cured, the insert t rial was removed. Any extra cement was carefully removed from around the implant and capsule. Elec trocautery was used to obtain meticulous hemostasis. Final insert chosen was a 9-mm posterior stabi lized articular insert, size 3-4. This was locked into position on the tibial tray. Stability of t he insert was checked and rechecked and noted to be stable. The extensor mechanism was closed using the interrupted #1 Vicryl over a medium Hemovac drain. The rest of the incision was closed in a layered fashion using 0 and 2-0 Vicryls. Skin was closed using running 3-0 nylon suture. Sterile Xeroform, 4x4s, and Webril were used to cover the incision. Gavin wrap and cold pack were placed over this. The patient's anesthesia was reversed without difficulty. She was taken to the PACU in stable condition. Intended weightbearing will be weightbearing as to lerated. Intended DVT prophylaxis will be Coumadin with a Lovenox bridge. [id number]/[facility] #: [id number]
[2017-02-14] MEDS: oxyCODONE TAB* 5 MG TAB PO PRN ×5 (01:26→17:46)
[2017-02-14] MEDS: HYDROmorphone INJ* 1 MG/ML CARPUJECT SYRINGE IV SLOW PU PRN ×4 (04:13→21:20)
[2017-02-14] MEDS: Omeprazole CAP* 20 MG PO SCH (07:14)
[2017-02-14 08:29] LABS: Hematocrit 29 % (35-47); Hemoglobin 9.7 g/dl (12.0-16.0)
[2017-02-14] MEDS: Hydrocortisone 1% CREAM* 30 GM TUBE TOPICAL SCH (08:41)
[2017-02-14] MEDS: Mometasone/Formoter 200/5 MDI INH SCH ×2 (08:41→21:19)
[2017-02-14] MEDS: Olopatadine 0.1% OPHTH (NF) 1 DROP BTL BOTH EYES SCH (08:42)
[2017-02-14] MEDS: Furosemide TAB* 40 MG PO SCH (08:43)
[2017-02-14] MEDS: Docusate CAP* 100 MG PO SCH ×2 (08:43→21:19)
[2017-02-14] MEDS: Hydroxychloroquine TAB* 200 MG PO SCH ×2 (08:43→21:19)
[2017-02-14] MEDS: Prochlorperazine TAB* 10 MG PO SCH ×2 (08:43→21:20)
[2017-02-14] MEDS: Famotidine TAB* 20 MG PO SCH (08:43)
[2017-02-14] MEDS: Triamterene/HCTZ 37.5-25 MG* CAP PO SCH (08:43)
[2017-02-14] MEDS: ALPRAZolam TAB* 0.5 MG PO SCH ×3 (08:44→21:18)
[2017-02-14] MEDS: Citalopram TAB* 40 MG PO SCH (08:44)
--- NOTE | 2017-02-14 10:37 | PN ---
Progress Note - Progress Note Date of Service: 02/14/17 SOAP: Subjective: Pt. is in severe pain, baseline home meds long acting morphine are requested. Objective: RLE - dressing changed, significant bruising. min drainage. distally nvi. Vital Signs: Temp Pulse Resp BP Pulse Ox 98.0 F 89 22 143/64 97 02/14/17 07:36 02/14/17 08:12 02/14/17 09:43 02/14/17 07:36 02/14/17 08:12 Laboratory Results - last 24 hr 02/14/17 02/14/17 07:45 07:45 Hgb 9.7 L Hct 29 L INR (Anticoag Therapy) 1.35 H Assessment: 51 yo F pod 2 s/p RTKA Plan: wbat rle pt/ot lovenox today, 8 mg coumadin tonight add morphine ER 60 bid plan d/c to home tomorrow with vns
[2017-02-14] MEDS: Morphine TAB Extended Release (*) 30 MG TAB.ER PO SCH (10:40)
[2017-02-14] MEDS: Enoxaparin(*) 30 MG/0.3 ML SYR SUBCUT SCH (15:10)
[2017-02-14] MEDS ORDERED: Warfarin TAB(*) 4 MG PO ONE (17:00)
[2017-02-15] MEDS: Morphine TAB Extended Release (*) 30 MG TAB.ER PO SCH ×3 (00:06→23:08)
[2017-02-15] MEDS: HYDROmorphone INJ* 1 MG/ML CARPUJECT SYRINGE IV SLOW PU PRN ×3 (02:22→19:43)
[2017-02-15] MEDS: oxyCODONE TAB* 5 MG TAB PO PRN ×4 (04:58→18:03)
[2017-02-15 07:29] LABS: Hematocrit 29 % (35-47); Hemoglobin 9.5 g/dl (12.0-16.0)
[2017-02-15] MEDS: Omeprazole CAP* 20 MG PO SCH (07:29)
[2017-02-15] MEDS: Hydrocortisone 1% CREAM* 30 GM TUBE TOPICAL SCH (08:48)
[2017-02-15] MEDS: Furosemide TAB* 40 MG PO SCH (08:48)
[2017-02-15] MEDS: Olopatadine 0.1% OPHTH (NF) 1 DROP BTL BOTH EYES SCH (08:48)
[2017-02-15] MEDS: Mometasone/Formoter 200/5 MDI INH SCH ×2 (08:48→21:47)
[2017-02-15] MEDS: Hydroxychloroquine TAB* 200 MG PO SCH ×2 (08:49→21:25)
[2017-02-15] MEDS: Prochlorperazine TAB* 10 MG PO SCH ×2 (08:49→21:25)
[2017-02-15] MEDS: ALPRAZolam TAB* 0.5 MG PO SCH ×3 (08:49→21:25)
[2017-02-15] MEDS: Citalopram TAB* 40 MG PO SCH (08:50)
[2017-02-15] MEDS: Famotidine TAB* 20 MG PO SCH (08:50)
[2017-02-15] MEDS: Docusate CAP* 100 MG PO SCH ×2 (08:50→21:24)
[2017-02-15] MEDS: Triamterene/HCTZ 37.5-25 MG* CAP PO SCH (08:50)
--- NOTE | 2017-02-15 14:01 | PN ---
Progress Note - Progress Note Date of Service: 02/15/17 SOAP: Subjective: [Pt is doing well. Pain better controlled with morphine ER. Denies CP/SOB Objective: 51 y/o F NAD, A&Ox3 RLE- inc c/d/i, dressing changed, calf soft NT, +DF/PF, NVI Vital Signs Temp Pulse Resp BP Pulse Ox 99.4 F 96 22 149/68 93 02/15/17 12:04 02/15/17 12:04 02/15/17 13:23 02/15/17 12:04 02/15/17 12:04 Laboratory Results - last 24 hr 02/15/17 02/15/17 06:48 06:48 Hgb 9.5 L Hct 29 L INR (Anticoag Therapy) 2.11 H Assessment: 51 yo F pod 3 s/p RTKA Plan: wbat rle pt/ot Therapeutic INR- DC lovenox today, hold coumadin tonight cont morphine ER 60 bid plan d/c to SNF 02/16 for acute rehab
[2017-02-16] MEDS: HYDROmorphone INJ* 1 MG/ML CARPUJECT SYRINGE IV SLOW PU PRN ×2 (04:19→09:58)
[2017-02-16] MEDS: oxyCODONE TAB* 5 MG TAB PO PRN ×2 (07:31→13:31)
[2017-02-16] MEDS: Omeprazole CAP* 20 MG PO SCH (07:31)
[2017-02-16 07:51] LABS: Hematocrit 30 % (35-47); Hemoglobin 9.5 g/dl (12.0-16.0)
[2017-02-16] MEDS: Mometasone/Formoter 200/5 MDI INH SCH (08:50)
[2017-02-16] MEDS ORDERED: Methotrexate TAB* 2.5 MG PO SCH (09:00)
[2017-02-16] MEDS: ALPRAZolam TAB* 0.5 MG PO SCH ×2 (09:06→11:55)
[2017-02-16] MEDS: Famotidine TAB* 20 MG PO SCH (09:06)
[2017-02-16] MEDS: Citalopram TAB* 40 MG PO SCH (09:06)
[2017-02-16] MEDS: Triamterene/HCTZ 37.5-25 MG* CAP PO SCH (09:06)
[2017-02-16] MEDS: Prochlorperazine TAB* 10 MG PO SCH (09:06)
[2017-02-16] MEDS: Docusate CAP* 100 MG PO SCH (09:06)
[2017-02-16] MEDS: Furosemide TAB* 40 MG PO SCH (09:07)
[2017-02-16] MEDS: Olopatadine 0.1% OPHTH (NF) 1 DROP BTL BOTH EYES SCH (09:08)
[2017-02-16] MEDS: Hydrocortisone 1% CREAM* 30 GM TUBE TOPICAL SCH (09:08)
[2017-02-16] MEDS: Hydroxychloroquine TAB* 200 MG PO SCH (09:12)
[2017-02-16] MEDS: Morphine TAB Extended Release (*) 30 MG TAB.ER PO SCH (11:01)
[2017-02-16 11:56] VITALS: BP 137/64
--- NOTE | 2017-02-16 12:05 | PN ---
Progress Note - Progress Note Date of Service: 02/16/17 SOAP: Subjective: 51 yo F pod 4 s/p RTKA by Dr Ace. Patient pain under control with pain medication, eager for D/C. No other complaints, questions about surgery. C/O difficulty with lifting R leg out of bed. Objective: General- Well appearing, NAD AO MSK- Dressing taken down, inc d/c/i, re-dressed, + Ecchymosis around incision, moderate swelling. + PF/ DF b/l, neg homans b/l, PT 2+ sensation grossly intact. + hip flexion/ ext on examination, however decreased flexion due to pain. Vital Signs Temp 98.3 F 02/16/17 11:45 Pulse 101 02/16/17 11:45 Resp 17 02/16/17 11:55 BP 137/64 02/16/17 11:45 Pulse Ox 95 02/16/17 11:45 Intake & Output 02/15/17 02/16/17 02/16/17 18:59 06:59 18:59 Intake Total 700 480 700 Output Total 1550 400 0 Balance -850 80 700 Intake: Oral 700 480 700 Output: Urine 1550 400 0 Other: # Bowel Movements 1 0 Estimated Stool Amount Medium Laboratory Results - last 24 hr 02/16/17 02/16/17 07:30 07:30 Hgb 9.5 L Hct 30 L INR (Anticoag Therapy) 1.89 H Assessment: 51 yo F pod 4 s/p RTKA Plan: - DVT prophylaxis- coumadin - Continue PT/ OT - D/C to rehab today - Follow up with DR. Ace within 10 days
--- NOTE | 2017-02-16 12:45 | DS ---
Coumadin Dosin/18- 4mg 02/17- 4mg 02/18- 4mg INR check 02/19 Discharge Summary Date of Admission: Date of Discharge: 02/16/2017 Provider: Dr. Sunshine Ace Principle Diagnosis: RIGHT total knee arthroplasty/ replacement Secondary Diagnoses: See H&P Principle procedure: Rght total knee replacement Consultations: Phyiscal therapy, Occupational therapy, Medicine HPI: Refer to H&P Hospital Course: The patient was admitted on 02/12/2017 and underwent a right total knee replacement by Dr. Ace. She tolerated the procedure well and there were no complications. The patient had spinal anesthesia and was quite comfortable in the immediate postoperative period. On POD#1 the patients H&H was 9.3/29. Dressing was CDI, she was neurovascularly intact with good sensation distal to the right knee. She could demonstrate dorsi and plantar flexion with good strength. Participation in physical and occupational therapy was begun. Pain management was controlled with oxycodone 10mg every 4 hours and long acting Morphine ER 60mg BID. On POD#2 the urinary catheter was discontinued and the patient was able to void spontaneously. The dressing was changed and the wound was found to be benign with minimal drainage and erythema. Vital signs were stable and the patient was afebrile. POD#3 bowel and bladder had normalized and the patient was cleared by physical therapy for safe discharge to home with services. She will continue with the exercises learned with physical therapy and arrangements were made for visiting home physical therapy as well. At discharge the H&H was 9.5/30, vital signs were stable and the INR value was 1.98. The patient was discharged with a prescription for Coumadin 2 mg. The INR will be monitored on Mondays and and the Coumadin dose adjusted accordingly. The patient will resume the home medications as indicated in the discharge instructions. [place] and/ or sutures will be removed in 10-14 days. Medications at discharge: Albuterol (Ventolin 2.5 Mg/3 Ml Neb.Obdulia*) 2.5 mg INH Q4HR PRN PRN Reason: SOB/WHEEZING Albuterol (Ventolin Hfa Inhaler*) 2 puff INH Q4H PRN PRN Reason: SOB/WHEEZING Alprazolam (Xanax Tab*) 0.5 mg PO 1200 NADEEM Last Admin: 02/16/17 11:55 Dose: 0.5 mg Alprazolam (Xanax Tab*) 1 mg PO BID [facility] Last Admin: 02/16/17 09:06 Dose: 1 mg Citalopram Hydrobromide (Celexa Tab*) 40 mg PO QAM [facility] Last Admin: 02/16/17 09:06 Dose: 40 mg Docusate Sodium (Colace Cap*) 100 mg PO BID [facility] Last Admin: 02/16/17 09:06 Dose: 100 mg Famotidine (Pepcid Tab*) 20 mg PO QAM [facility] Last Admin: 02/16/17 09:06 Dose: 20 mg Furosemide (Lasix Tab*) 40 mg PO QAM [facility] Last Admin: 02/16/17 09:07 Dose: Not Given Hydrocortisone (Hytone Cream 1%*) 1 applic TOPICAL DAILY [facility] Last Admin: 02/16/17 09:08 Dose: Not Given Hydroxychloroquine Sulfate (Plaquenil Tab*) 200 mg PO BID Methotrexate (Methotrexate Tab*) 15 mg PO Mo [facility] Last Admin: 02/16/17 09:12 Dose: 15 mg Mometasone Furoate/Formoterol Fumar (Dulera 200/5 Mdi*) 2 puff INH BID [facility] Last Admin: 02/16/17 08:50 Dose: 2 puff Morphine Sulfate (Ms Contin(*)) 60 mg PO Q12H [facility] Last Admin: 02/16/17 11:01 Dose: 60 mg Nicotine (Nicotine Inhaler*) 10 mg INH Q2H PRN PRN Reason: CRAVING Last Admin: 02/14/17 01:25 Dose: 10 mg Olopatadine HCl (Patanol 0.1% Ophth (Nf)) 1 [facility] PR[facility] Reason: Protocol Last Admin: 02/16/17 09:08 Dose: Not Given Omeprazole (Prilosec Cap*) 20 mg PO QAM@0730 [facility] Last Admin: 02/16/17 07:31 Dose: 20 mg Oxycodone HCl (Roxycodone Tab*) 10 mg PO Q4H PRN PRN Reason: SEVERE PAIN Last Admin: 02/16/17 07:31 Dose: 10 mg Coumadin Daily as directed above Prochlorperazine (Compazine Tab*) 10 mg PO BID [facility] Last Admin: 02/16/17 09:06 Dose: 10 mg Triamterene/HCTZ (Dyazide Cap*) 1 cap PO QAM NADE[place] Last Admin: 02/16/17 09:06 Dose: 1 cap Nasal O2 at bedtime Condition: Stable Disposition: Juan Kathleen with PT and PT/INR draws on Thursday and Follow up: Patient will follow up with in 10 days at [facility] Orthopedics Vital Signs Temp 98.3 F 02/16/17 11:45 Pulse 101 02/16/17 11:45 Resp 17 02/16/17 11:55 BP 137/64 02/16/17 11:45 Pulse Ox 95 02/16/17 11:45 Intake & Output 02/15/17 02/16/17 02/16/17 18:59 06:59 18:59 Intake Total 700 480 700 Output Total 1550 400 0 Balance -850 80 700 Intake: Oral 700 480 700 Output: Urine 1550 400 0 Other: # Bowel Movements 1 0 Estimated Stool Amount Medium 02/14/17 02/14/17 02/15/17 07:45 07:45 06:48 Hgb 9.7 L 9.5 L Hct 29 L 29 L INR (Anticoag Therapy) 1.35 H 02/15/17 02/16/17 02/16/17 06:48 07:30 07:30 Hgb 9.5 L Hct 30 L INR (Anticoag Therapy) 2.11 H 1.89 H
== END 2017-02-16 14:55 | DRG 470 ==
LOC: AA 10:52 → SSU 16:23
PROVIDERS: ADMIT Orthopaedic Surgery Adult Reconstructive Orthopaedic Surgery; ATTEND Orthopaedic Surgery Adult Reconstructive Orthopaedic Surgery
PROC: 0SRC0J9 Replacement of Right Knee Joint with Synthetic Substitute, Cemented, Open Approach (ICD-10-PCS; principal; 2017-02-12 13:00)
DX: M17.11 Unilateral primary osteoarthritis, right knee (principal); M34.9 Systemic sclerosis, unspecified; N18.3 Chronic kidney disease, stage 3 (moderate); Z79.01 Long term (current) use of anticoagulants; J44.9 Chronic obstructive pulmonary disease, unspecified; K21.9 Gastro-esophageal reflux disease without esophagitis; Z90.710 Acquired absence of both cervix and uterus; Z88.5 Allergy status to narcotic agent; Z88.8 Allergy status to other drugs, medicaments and biological substances; Z82.49 Family history of ischemic heart disease and other diseases of the circulatory system; Z83.3 Family history of diabetes mellitus; Z84.89 Family history of other specified conditions; I35.0 Nonrheumatic aortic (valve) stenosis; I12.9 Hypertensive chronic kidney disease with stage 1 through stage 4 chronic kidney disease, or unspecified chronic kidney disease; M19.012 Primary osteoarthritis, left shoulder; Z91.040 Latex allergy status; F17.290 Nicotine dependence, other tobacco product, uncomplicated; F41.9 Anxiety disorder, unspecified; G89.29 Other chronic pain
CPT/HCPCS: 1036F; 36415; 80048; 80053; 81003; 81015; 85014; 85018; 85025; 85379; 85610; 85652; 86140; 87086; 94640; 94760; 99211; 99213; A9270-GY; C1776; G0463; G8427; G8730; J0690; J1170; J1650; J2250; J2270; J2795; J3010; J8610; Q0164

== ENCOUNTER 2017-02-20 16:31 | Emergency (ER) | payer MEDICARE, MEDICAID ==
[2017-02-20 17:42] LABS: Hematocrit 31 % (35-47); Hemoglobin 10.2 g/dl (12.0-16.0); Mean Corpuscular HGB Conc 33 g/dl (31-36); Mean Corpuscular Hemoglobin 27 pg (27-31); Mean Corpuscular Volume 83 fL (80-97); Mean Platelet Volume 7 um3 (7.4-10.4); Red Blood Count 3.79 10^6/ul (4.0-5.4); Red Cell Distribution Width 17 % (10.5-15); White Blood Count 11.9 10^3/ul (3.5-10.8)
--- NOTE | 2017-02-20 17:42 | RAD ---
INDICATION: Right knee pain after a fall in a patient with a right knee prosthesis COMPARISON: Most recent radiograph February 12, 2017 TECHNIQUE: 2 view radiograph of the right knee. FINDINGS: The right knee prosthesis is anatomically aligned in the AP and lateral projections. There is no evidence of loosening or fracture. There is no large joint effusion. IMPRESSION: Anatomic alignment of right knee prosthesis without radiographic evidence of acute injury. If the patient's symptoms persist, follow-up imaging is recommended.
[2017-02-20 17:44] LABS: Add Diff/Slide Review? Manual Diff Added; Comments Flag Yes
[2017-02-20] MEDS ORDERED: NS 0.9% 1000 ML* 1,000 ML IV ONE (17:54)
[2017-02-20 18:00] LABS: Albumin 3.9 g/dL (3.2-5.2); BUN/Creatinine Ratio 24.3 (8-20); C Reactive Protein 82.99 mg/L (< 5.00); EGFR African American 66.1 (>60); EGFR Non-African American 51.4 (>60); Globulin 4.1 g/dL (2-4); Potassium 3.1 mmol/L (3.5-5.0); Total Bilirubin 0.7 mg/dL (0.2-1.0)
[2017-02-20] MEDS ORDERED: Potassium Chlor TAB* 20 MEQ TAB.ER PO ONE (18:04)
[2017-02-20 18:08] LABS: Add Path Review? YES; Eosinophils % 2 % (0-6); Immature Granulocytes 5 % (0-9); Neutrophil % 78 % (38-83); RBC Morphology Normal (Normal); Reactive Lymph % 1 % (0-6)
--- NOTE | 2017-02-20 18:57 | RAD ---
HISTORY: Right leg pain and edema. Right TKA February 12, 2017 TECHNIQUE: Multiple transverse and longitudinal ultrasound images were obtained of the veins of the right lower extremity using grayscale, color Doppler, and spectral Doppler imaging with and without compression and with augmentation. FINDINGS: VEINS: The common femoral vein, deep femoral vein, femoral vein and popliteal vein are compressible throughout their course, with normal flow on color Doppler imaging and normal response to augmentation on spectral Doppler imaging. SOFT TISSUES: Grossly normal. No large popliteal fossa cyst was identified. IMPRESSION: No sonographic evidence of deep vein thrombosis.
[2017-02-20 19:11] LABS: Erythrocyte Sed Rate 76 mm/Hr (0-30)
[2017-02-20] MEDS ORDERED: Cephalexin CAP* 500 MG PO ONE (20:02)
[2017-02-20 20:06] VITALS: BP 128/63
--- NOTE | 2017-02-20 23:33 | ED ---
Jayda Salinas Rebecca, scribed for Yobani Castor on 02/20/17 at 2001 . Progress - Progress Note Progress Note: Pt was signed out from Dr. Kebede, pending disposition, awaiting orthopedic consult. Course/Dx - Course Course Of Treatment: Pt was signed out from Dr. Kebede, pending dispositoin, awaiting Dr. Stephenson (orthopedic) consultation. Upon consultation, Dr. Stephenson has advised admission with an outpatient follow up as well as Abx. Pt understands and agrees. Pt's condition is stable and her disposition is to be D/ C to home with Dx of right knee pain and s/p knee surgery with Rx for Keflex and a follow up with Dr. Stephenson. She understands and agrees. Elevated BP noted and advised to f/u with PCP. - Diagnoses Provider Diagnoses: Right knee pain, S/P knee surgery The documentation as recorded by the Jayda umana Rebecca accurately reflects the service I personally performed and the decisions made by , Yobani aCstro.
--- NOTE | 2017-02-21 00:09 | CONS ---
CC: PCP CONSULTATION REPORT: DATE OF CONSULTATION: 02/20/17 LOCATION: ED. CHIEF COMPLAINT: Right knee pain and swelling. HISTORY OF PRESENT ILLNESS: Briefly, Sandra Culver is a 51-year-old female, who underwent right total knee replacement on 02/13/[address] Ace. She was doing well and she was at [facility] when the therapist noted that her knee was little bit more swollen and there was some mild drainage. As the y felt that it was warm, they called and immediately sent the images over to clinic. There was conc brett for a possible early infection. Therefore, she was sent to the ER. She denies any fevers or ch ills. She states that her pain is a constant pain, but it is calming down and it has been better si nce yesterday and better couple of days before. She denies numbness or tingling, no fevers or chill s, no calf pain, no shortness of breath. Otherwise, she is in her usual state of health. PAST MEDICAL HISTORY: Significant for hypertension, COPD, GERD, scleroderma, aortic stenosis. PAST SURGICAL HISTORY: Significant for hysterectomy, breast biopsy, left knee ACL reconstruction, r ight total knee arthroplasty on February 13. MEDICATIONS: Include: 1. Probiotic acidophilus. 2. Prochlorperazine. 3. Methotrexate. 4. Oxygen. 5. Aleve. 6. Hydroxychloroquine. 7. Folic acid. 8. Lexapro. 9. Ambien. 10. Xanax. 11. MS Contin. 12. Famotidine. 13. Triamterene. 14. Advair Diskus. 15. Albuterol sulfate. 16. Morphine. 17. Alclometasone. 18. Furosemide. 19. Potassium chloride. 20. Mirtazapine. 21. Nebulizer. 22. Lovastatin. 23. Polyethylene glycol. 24. Olopatadine hydrochloride ophthalmic solution. ALLERGIES: To CODEINE and ULTRACET. FAMILY HISTORY: Significant for cancer, diabetes, hypertension. SOCIAL HISTORY: She is 51 years old. She lives by herself. She denies tobacco and alcohol. REVIEW OF SYSTEMS: A 14-point review of systems reviewed with the patient and is significant only f or recent right knee surgery with right knee swelling. Earlier, there was drainage today, but there is no drainage presently. No calf pain. No shortness of breath. No fevers, no chills. Otherwise , remainder of systems negative. PHYSICAL EXAMINATION: Vitals: Temperature of 98 degrees, pulse rate 79, oxygen 96% on room air, bl ood pressure 128/63, respiratory rate 14. General: She is in no acute distress. She is well-devel oped, well-nourished. She is lying comfortably in the stretcher. She is pleasant and conversant. EOMI. Chest is clear to auscultation. Heart is regular rate and rhythm. Examination of the right knee demonstrates that there are stitches. There is no obvious drainage. There is an effusion of t he knee, but appears to be abundant bruising around the knee. It is warm, but not more warm than th e rest of the body. She has some discomfort with range of motion. Her calf is soft and nontender. She is sensate to light touch along the first dorsal web space, medial and lateral, dorsal and plan tar foot. She has a 2+ PT pulse. DIAGNOSTIC STUDIES/LAB DATA: Labs obtained today demonstrated a white count of 11.9, hematocrit of 31, platelet count of 533. ESR 76. INR was pending. Sodium of 130, potassium 3.1, chloride of 91, carbon dioxide 31, BUN of 27, creatinine 1.11, glucose of 113. CRP of 82.99. DVT was ordered, whi ch is negative. ASSESSMENT AND PLAN: She is about 1 week after surgery. She has some mild erythema, but no obvious signs and symptoms of infection. There is no obvious drainage. We did discuss options. She does have mildly elevated inflammatory markers, but this could be due to postsurgical. I discussed the c ase with Dr. Ace. I do think that the patient's symptoms are improving with regards to pain and t his could just be postoperative intraarticular hematoma. I discussed at length with the patient ris tn and we talked about the treatment options. I will place her on antibiotics provisionally. I néstor l have her continue her DVT prophylaxis. She will be discharged today back to her facility on oral antibiotics. She was instructed to call if she develops fevers, chills, increased drainage, increas ed pain, spreading of the redness. We reviewed where the redness was located currently. She is mony re that she should call the answering service for any further issues this weekend. Otherwise, she w ill follow up with Dr. Opal Ace on Thursday. This was discussed at length with the ED provider . [id number]/[facility] #: [id number]
--- NOTE | 2017-02-21 08:17 | ED ---
Eduard Salinas Angela, scribed for Torin Kebede MD on 02/20/17 at 1647 . Lower Extremity - HPI Summary HPI Summary: This pt is a 51 y/o female, s/p total right knee replacement 8 days ago, presenting to [facility] c/o swollen and painful right knee. Pt reports that she had surgery by Dr. Ace. She last saw Dr. Ace 6 days ago. Her pain is rated 8 out of 10 in severity and describes there is discharge from her stitches. Pt denies fever, chills, nausea, and vomiting. Pt denies any trauma or heavy lifting. - History of Current Complaint Chief Complaint: EDExtremityLower Stated Complaint: RT KNEE PAIN AND INFLAMMATION Time Seen by Provider: 02/20/17 16:39 Hx Obtained From: Patient Onset/Duration: Still Present Pain Intensity: 8 Pain Scale Used: 0-10 Numeric Timing: Constant Location: Is Discrete @ - right knee Associated Signs And Symptoms: Positive: Swelling, Redness, Knee Pain - right knee. Negative: Weakness, Dizziness, Abdominal Pain - Allergies/Home Medications Allergies/Adverse Reactions: Allergies Allergy/AdvReac Type Severity Reaction Status Date / Time Codeine Allergy Severe suicidal Verified 02/12/17 11:10 Latex Allergy Severe REDNESS, Verified 02/12/17 11:10 SKIN PEELING Adhesive Tape Allergy Mild pulls skin Verified 02/12/17 11:10 off Acetaminophen [From Ultracet] Allergy Unknown Unknown Verified 02/12/17 11:10 Reaction Details Tramadol [From Ultracet] Allergy Unknown Unknown Verified 02/12/17 11:10 Reaction Details STERI-STRIPS Allergy Intermediate SKIN Uncoded 02/12/17 11:10 PEELING PMH/Surg Hx/FS Hx/Imm Hx Endocrine/Hematology History: Reports: Other Endocrine/Hematological Disorders - scleroderma Denies: Hx Diabetes, Hx Anemia, Hx Unexplained Bleeding Cardiovascular History: Reports: Hx Hypertension Denies: Hx Aneurysm, Hx Angina, Hx Angioplasty, Hx Auto Implanted Cardiovert Defib, Hx Cardiac Arrest, Hx Cardiomegaly, Hx Congenital Heart Disease, Hx Congestive Heart Failure, Hx Coronary Artery Disease, Hx Deep Vein Thrombosis, Hx Embolism, Hx Hypercholesterolemia, Hx Hypotension, Hx Pacemaker/ICD, Hx Peripheral Vascular Disease, Hx Rheumatic Fever, Hx Syncope, Hx Valvular Heart Disease, Other Cardiovascular Problems/Disorders Respiratory History: Reports: Hx Asthma - ROUTINE AND PRN INHALERS, Hx Chronic Bronchitis, Hx Chronic Obstructive Pulmonary Disease (COPD) - 3L O2 at night per pt report, Other Respiratory Problems/Disorders - COPD GI History: Reports: Hx Gastroesophageal Reflux Disease - ON MEDICATION FOR Denies: Other GI Disorders History: Denies: Hx Renal Disease, Other Problems/Disorders Musculoskeletal History: Reports: Hx Back Problems Denies: Hx Arthritis, Hx Bursitis, Hx Congenital Bone Abnormalities, Hx Fibromyalgia, Hx Gout, Hx Orthopedic Injury, Hx Osteoporosis, Hx Scoliosis, Hx Tendonitis, Other Musculoskeletal History Sensory History: Reports: Hx Contacts or Glasses - long distance use only Denies: Hx Cataracts, Hx Eye Injury, Hx Eye Prosthesis, Hx Glaucoma, Hx Legally Blind, Hx Macular Degeneration, Hx Vision Problem, Hx Deafness, Hx Hearing Aid, Hx Hearing Problem, Other Sensory Impairments Opthamlomology History: Reports: Hx Contacts or Glasses - long distance use only Denies: Hx Cataracts, Hx Eye Injury, Hx Eye Prosthesis, Hx Glaucoma, Hx Legally Blind, Hx Macular Degeneration, Hx Vision Problem, Other Sensory Impairments Neurological History: Reports: Hx Nerve Disease Denies: Other Neuro Impairments/Disorders Psychiatric History: Reports: Hx Anxiety, Hx Depression Denies: Hx Panic Disorder, Other Psychiatric Issues/Disorders - Cancer History Hx Chemotherapy: No Hx Radiation Therapy: No - Surgical History Surgery Procedure, Year, and Place: left knee arthroscopy. hysterectomy. ACL RECONSTRUCTION Hx Anesthesia Reactions: No - Immunization History Date of Tetanus Vaccine: 2013 Date of Influenza Vaccine: Fall 2013 Infectious Disease History: No Infectious Disease History: Denies: Hx of Known/Suspected MRSA, Hx Shingles, Hx Tuberculosis, Hx Known/ Suspected VRE, Hx Known/Suspected VRSA, History Other Infectious Disease, Traveled Outside the [place] in Last 30 Days - Family History Known Family History: Positive: Cardiac Disease - Social History Alcohol Use: Rare Substance Use Type: Reports: None Substance Use Comment - Amount & Last Used: ROUTINE AND PRN PRESCRIBED MEDICATION Smoking Status (MU): Former Smoker Type: eCigarettes Amount Used/How Often: 1.5 ppd Length of Time of Smoking/Using Tobacco: 36 years Have You Smoked in the Last Year: No Review of Systems Negative: Fever, Chills Negative: Vomiting, Diarrhea, Nausea Genitourinary: Negative Positive: Edema - right knee edema, Other - right knee pain Negative: Weakness, Paresthesia, Numbness All Other Systems Reviewed And Are Negative: Yes Physical Exam - Summary Physical Exam Summary: VITAL SIGNS: Reviewed. GENERAL: ~Patient is a well-developed and nourished female who is lying comfortable in the stretcher. Patient is not in any acute respiratory distress. HEAD AND FACE: No signs of trauma. No ecchymosis, hematomas or skull depressions. No sinus tenderness. EYES: PERRLA, EOMI x 2, No injected conjunctiva, no nystagmus. EARS: Hearing grossly intact. Ear canals and tympanic membranes are within normal limits. MOUTH: Oropharynx within normal limits. NECK: Supple, trachea is midline, no adenopathy, no JVD, no carotid bruit, no c- spine tenderness, neck with full ROM. CHEST: Symmetric, no tenderness at palpation LUNGS: Clear to auscultation bilaterally. No wheezing or crackles. CVS: Regular rate and rhythm, S1 and S2 present, no murmurs or gallops appreciated. ABDOMEN: Soft, non-tender. No signs of distention. No rebound no guarding, and no masses palpated. Bowel sounds are normal. EXTREMITIES: No cyanosis or clubbing. Right lower extremity: there is redness, swelling, and ecchymosis on the right knee. There is decreased ROM on the right knee. There are good pulses. NEURO: Alert and oriented x 3. No acute neurological deficits. Speech is normal and follows commands. SKIN: Dry and warm Triage Information Reviewed: Yes Vital Signs On Initial Exam: Initial Vitals Temp Pulse Resp BP Pulse Ox 97.8 F 89 16 131/57 95 02/20/17 16:32 02/20/17 16:32 02/20/17 16:32 02/20/17 16:32 02/20/17 16:32 Vital Signs Reviewed: Yes - Ml Coma Scale Coma Scale Total: 15 Diagnostics - Vital Signs Vital Signs Temp Pulse Resp BP Pulse Ox 02/20/17 16:32 97.8 F 89 16 131/57 95 - Laboratory Lab Results: Lab Results 02/20/17 02/20/17 Range/Units 17:33 17:33 WBC 11.9 H (3.5-10.8) 10^3/ul RBC 3.79 L (4.0-5.4) 10^6/ul Hgb 10.2 L (12.0-16.0) g/dl Hct 31 L (35-47) % MCV 83 (80-97) fL MCH 27 (27-31) pg MCHC 33 (31-36) g/dl RDW 17 H (10.5-15) % Plt Count 533 H D (150-450) 10^3/ul MPV 7 L (7.4-10.4) um3 Immature Gran % (Auto) 5 (0-9) % Absolute Neuts (auto) 9.6 H (1.5-7.7) 10^3/ul Absolute Lymphs (auto) 1.3 (1.0-4.8) 10^3/ul Absolute Monos (auto) 1.0 H (0-0.8) 10^3/ul Absolute Eos (auto) 0.1 (0-0.6) 10^3/ul Absolute Basos (auto) 0 (0-0.2) 10^3/ul Absolute Nucleated RBC 0.01 10^3/ul Neutrophils % 78 (38-83) % Band Neutrophils % 5 (0-8) % Lymphocytes % 5 L (25-47) % Reactive Lymphs % 1 (0-6) % Monocytes % 9 (0-13) % Eosinophils % 2 (0-6) % Normal RBC Morphology Normal (Normal) ESR 76 H (0-30) mm/Hr Hem Pathologist Commnt Pending Sodium 130 L (133-145) mmol/L Potassium 3.1 L (3.5-5.0) mmol/L Chloride 91 L (101-111) mmol/L Carbon Dioxide 31 (22-32) mmol/L Anion Gap 8 (2-11) mmol/L BUN 27 H (6-24) mg/dL Creatinine 1.11 H (0.51-0.95) mg/dL Est GFR ( Amer) 66.1 (>60) Est GFR (Non-Af Amer) 51.4 (>60) BUN/Creatinine Ratio 24.3 H (8-20) Glucose 113 H (70-100) mg/dL Calcium 10.0 (8.6-10.3) mg/dL Total Bilirubin 0.70 (0.2-1.0) mg/dL AST 18 (13-39) U/L ALT 19 (7-52) U/L Alkaline Phosphatase 77 (34-104) U/L C-Reactive Protein 82.99 H (< 5.00) mg/L Total Protein 8.0 (6.4-8.9) g/dL Albumin 3.9 (3.2-5.2) g/dL Globulin 4.1 H (2-4) g/dL Albumin/Globulin Ratio 1.0 (1-3) Result Diagrams: 02/20/17 17:33 02/20/17 17:33 Lab Statement: Any lab studies that have been ordered have been reviewed, and results considered in the medical decision making process. - Radiology Right knee XR Xray Interpretation: No Acute Changes - IMPRESSION: Anatomic alignment of right knee prosthesis without radiographic eivdence of acute injury. If the patient's symptoms persist, follow-up imaging is recommended. ED physician has reviewed this radiology report and agrees. Radiology Interpretation Completed By: Radiologist - Additional Comments Diagnostic Additional Comments: Venous Doppler US RLE IMPRESSION: No sonographic evidence of deep vein thrombosis. ED physician has reviewed this result and agrees. Lower Extremity Course/Dx - Course Assessment/Plan: This pt is a 51 y/o female, s/p total right knee replacement 8 days ago, presenting to [facility] c/o swollen and painful right knee. Pt reports that she had surgery by Dr. Ace. She last saw Dr. Ace 6 days ago. Her pain is rated 8 out of 10 in severity and describes there is discharge from her stitches. Pt denies fever, chills, nausea, and vomiting. Pt denies any trauma or heavy lifting. Test results show WBC of 11.9, H&H of 10.2/31, sodium of 130 , potassium of 3.1, BUN of 27, creatinine 1.11. CRP is 82.99, ESR is pending. XR of the knee reveals anatomic alignment of right knee prosthesis without radiographic evidence of acute injury. In the ED course the pt was hydrated. The pt was also given potassium chloride for hypokalemia. I discussed the case with Dr. Jarquin and she will come and consult for the patient. Therefore, the US of the right lower extremity is negative for DVT. The pt will be signed out to Dr. Castro at shift change at 1900 to follow up on ESR level and Ultrasound report, as well as contact Dr. Stephenson for further disposition. Pt is hemodynamically stable, alert and oriented x3. - Diagnoses Differential Diagnosis/HQI/PQRI: Positive: Arthritis, Bursitis, Cellulitis, DVT Provider Diagnoses: Right knee pain, S/P knee surgery Discharge - Discharge Plan Condition: Stable Disposition: OTHER Discharge Disposition Comment: signed out to Dr. Castro, pending dispo, awaiting US RLE Prescriptions: Cephalexin [Keflex 750 MG] 750 mg PO BID #20 cap Patient Education Materials: Knee Pain (ED) Referrals: Rafita Weems MD [Primary Care Provider] - Francine Stephenson MD [Medical Doctor] - (Call Sherrill Stephenson in the morning to schedule a follow up.) The documentation as recorded by the Eduard umana Angela accurately reflects the service I personally performed and the decisions made by , Torin Kebede MD.
== END 2017-02-20 20:46 ==
LOC: ED 16:31
DX: M25.561 Pain in right knee (principal); R60.0 Localized edema; Z96.651 Presence of right artificial knee joint; M34.9 Systemic sclerosis, unspecified; I10 Essential (primary) hypertension; J44.9 Chronic obstructive pulmonary disease, unspecified; F41.9 Anxiety disorder, unspecified; F32.9 Major depressive disorder, single episode, unspecified; Z90.710 Acquired absence of both cervix and uterus; Z88.6 Allergy status to analgesic agent; Z91.040 Latex allergy status; Z88.5 Allergy status to narcotic agent; Z91.048 Other nonmedicinal substance allergy status; Z87.891 Personal history of nicotine dependence
CPT/HCPCS: 36415; 80053; 85025; 85060; 85652; 86140; 96360; 99283; A9270-GY

== ENCOUNTER 2017-06-09 07:30 | Inpatient (IN) | payer MEDICARE, MEDICAID ==
--- NOTE | 2017-05-26 10:18 | HP ---
HISTORY AND PHYSICAL: DATE OF SURGERY: 06/09/17. SURGEON: Opal Ace MD.* (DICTATED BY JANETH MOMIN) PROCEDURE: Left total knee arthroplasty. DATE OF OFFICE VISIT: 05/22/17. CHIEF COMPLAINT: Left knee pain. HISTORY OF PRESENT ILLNESS: Ms. Culver is a 51-year-old female with complaints of left knee pain secondary to end-stage osteoarthritis. She has failed conservative management and elected to proceed with a left total knee arthroplasty which is scheduled for 06/09/[address] Ace. PAST MEDICAL HISTORY: 1. Hypertension 2. COPD. 3. GERD. 4. Scleroderma. 5. Aortic stenosis. PAST SURGICAL HISTORY: 1. Hysterectomy. 2. Breast biopsy. 3. Left knee ACL reconstruction. 4. Right total knee arthroplasty. CURRENT MEDICATIONS: 1. Prochlorperazine maleate 10 mg daily. 2. Methotrexate 2.5 mg 6 tabs every week. 3. Oxygen as needed. 4. Hydrochloroquine 200 mg twice daily. 5. Folic acid every day. 6. Morphine sulfate 100 mg in the morning, 60 mg twice daily and 15 mg up to 5 times a day as needed. 7. Famotidine 20 mg twice daily. 8. Triamterene/hydrochlorothiazide 37.5/25 every day. 9. Advair Diskus. 10. Alclometasone dipropionate. 11. Furosemide 20 mg daily. 12. ProAir HFA. 13. Alprazolam 1 mg as needed. 14. Pentoxifylline 400 mg 3 times a day. 15. Omeprazole. 16. Pravastatin sodium. 17. Escitalopram 20 mg daily. ALLERGIES: To CODEINE causing suicidal ideations and ULTRACET. FAMILY HISTORY: Cancer, diabetes and hypertension. SOCIAL HISTORY: She is a 51-year-old female. She lives alone. She smokes e- cigarettes. She denies use of drugs. Uses occasional alcohol. REVIEW OF SYSTEMS: A complete 14-point review of systems was reviewed with the patient, was positive for GERD and COPD. She denies a history of DVT, PE, hepatitis C, HIV or anesthesia problems. PHYSICAL EXAMINATION GENERAL: She is well developed, well nourished, in no acute distress. She is alert and oriented x3. Pleasant mood and appropriate affect. VITAL SIGNS: She stands 5 feet 5 inches tall, weighs 147 pounds. Her blood pressure is 110/70, her heart rate is 80. HEENT: Normocephalic, atraumatic. NECK: Supple. No palpable lymph nodes. LUNGS: Lungs are clear to auscultation bilaterally. HEART: Regular rate and rhythm. Strong S1, S2. ABDOMEN: Soft, nontender, nondistended. MUSCULOSKELETAL: Left lower extremity, the skin is intact. There is no open wounds or abrasions. There is some mild effusion tenderness over the mediolateral joint line; 5 to 125 degrees of flexion, 2+ dorsalis pedis pulses. She has intact sensation. Her lower extremity muscle group strengths are intact at 5/5. There is no varus or valgus instability. NEUROLOGIC: Cranial nerves II through XII are intact. ASSESSMENT AND PLAN: Ms. Culver is a 52-year-old female with complaints of left knee pain secondary to end-stage osteoarthritis. She has failed conservative management and elected to proceed with a left total knee arthroplasty which is scheduled for 06/09/[address] Ace discussed the risks and benefits of the surgery at today's visit and all of her questions were answered. The patient will follow up with Dr. Ace 2 weeks after the surgery. JANETH MOMIN [id number]/[facility] [place] #: [id number] MTDKevin
[~2017-06-09 07:30] MED LIST changes: +DiMENhydriNATE IV* 50 MG/ML VIAL IV PUSH PRN; +Naloxone* 0.4 MG/ML 1 ML VIAL IV PRN
[2017-06-09] MEDS ORDERED: ceFAZolin 2 GM PREMIX (*) 2 GM/50 ML BAG IVPB ONE (10:53)
[2017-06-09] MEDS ORDERED: Famotidine IV* 10 MG/ML 2 ML (20 mg) ONE (10:53)
[2017-06-09] MEDS ORDERED: Buffered Lidocaine 0.9% SYRIN* 5 ML/SYR SYRINGE ONE (10:53)
[2017-06-09] MEDS ORDERED: KETAMINE HCL* 50 MG/ML 10 ML VIAL ONE (12:44)
[2017-06-09] MEDS ORDERED: fentaNYL* 50 MCG/ML 2 ML VIAL (100 MCG VIAL) ONE (12:44)
[2017-06-09] MEDS ORDERED: Midazolam* 1 MG/ML 10 ML VIAL (10 MG) ONE ×2 (12:45→13:48)
[2017-06-09] MEDS ORDERED: Ondansetron INJ* 2 MG/ML VIAL IV PRN (15:06)
[2017-06-09] MEDS ORDERED: EPHEDrine (Pressors)* 50 MG/ML VIAL IV PUSH PRN (15:06)
[2017-06-09] MEDS ORDERED: Hetastarch in NS* 500 ML IV PRN (15:06)
[2017-06-09] MEDS ORDERED: PROCHLORPERAZINE INJ 5 MG/ML 2 ML VIAL IV PRN (15:06)
[2017-06-09] MEDS ORDERED: Ropivacaine 0.2% EPIDURAL* 200 MG/100 ML BAG EPIDURAL ONE (15:16)
[2017-06-09] MEDS ORDERED: Midazolam* 1 MG/ML 2 ML VIAL (2 MG) ONE (15:41)
[2017-06-09] MEDS ORDERED: Magnesium Hydroxide LIQ* 30 ML UDC PO PRN (15:50)
[2017-06-09] MEDS ORDERED: Bisacodyl SUPP* 10 MG SUPP PR PRN (15:50)
[2017-06-09] MEDS ORDERED: diPHENhydraMINE IV* 50 MG/ML 1 ml VIAL (BENADRYL) IV PRN (15:50)
[2017-06-09] MEDS ORDERED: Acetaminophen TAB* 325 MG PO PRN (15:50)
[2017-06-09] MEDS ORDERED: Lidocaine 2% PF * 5 ML VIAL ONE (15:54)
[2017-06-09] MEDS ORDERED: Bupivacaine 0.5% SDV PF* 10-30ML VIAL ONE (15:54)
[2017-06-09] MEDS ORDERED: Bupivacaine 0.25% SDV* 30 ML ONE (15:54)
[2017-06-09] MEDS ORDERED: Phenylephrine INJ* 10 MG/ML 1 ML VIAL (10 MG) ONE (15:54)
[2017-06-09] MEDS ORDERED: Ropivacaine 0.2% EPIDURAL* 200 MG/100 ML BAG EPIDURAL SCH (16:00)
--- NOTE | 2017-06-09 16:59 | RAD ---
INDICATION: Left total knee arthroplasty COMPARISON: Preoperative radiograph May 22, 2017 TECHNIQUE: 2 view radiograph of the left knee. FINDINGS: The left knee prosthesis is anatomically aligned in the AP and lateral views. A surgical drain is noted in place. A knee immobilizer is seen. The visualized bones are intact and appropriately aligned.. IMPRESSION: Anatomic alignment of recently installed left knee prosthesis.
[2017-06-09] MEDS ORDERED: Albuterol HFA INHALER* 8 gm MDI INH PRN (18:07)
[2017-06-09] MEDS ORDERED: Albuterol 2.5 MG/3 ML NEB.SOL* (0.083%) INH PRN (18:07)
[2017-06-09] MEDS ORDERED: Hetastarch in NS* 500 ML IV ONE (19:39)
[2017-06-09] MEDS ORDERED: DiMENhydriNATE IV* 50 MG/ML VIAL ONE (19:40)
[2017-06-09] MEDS ORDERED: Docusate CAP* 100 MG PO SCH (21:00)
[2017-06-09] MEDS ORDERED: Warfarin TAB(*) 6 MG PO ONE (23:00)
--- NOTE | 2017-06-09 23:13 | CONS ---
CC: Dr. Weems; Dr. Ace * CONSULTATION REPORT: DATE OF CONSULT: 06/09/17 PRIMARY CARE PROVIDER: Dr. Weems. REQUESTING PHYSICIAN IN CONSULT: Dr. Ace. MY ATTENDING PHYSICIAN WHILE IN THE HOSPITAL: Tommie Jeffers MD (report dictated by Miki Baum NP) REASON FOR MEDICAL CONSULTATION: Evaluation of medical management of comorbid medical conditions. HISTORY OF PRESENTING ILLNESS: I refer you to Dr. Ace's H and P for further details. In short, Ms. Culver is a 52-year-old female patient. She carries a history of hypertension, hyperlipidemia, COPD, mild aortic stenosis, scleroderma , anxiety, depression, and GERD. She came into the orthopedic services today for an elective left total knee. She had been having significant amount of pain secondary to arthritis and failed conservative therapy. She was evaluated in the PACU setting. She states she is feeling well, just drowsy. She does not have any nausea or chest pain or shortness of breath. She does not feel like she is going to pass out. She says she cannot move her toes just yet and otherwise feeling okay. Does not feel nauseated, does not feel like she is going to vomit, but because of her medical complexity, we were asked to evaluate for consult. PAST MEDICAL HISTORY: Significant for: 1. Hypertension. 2. COPD. 3. GERD. 4. Scleroderma. 5. Aortic stenosis. 6. Hyperlipidemia. 7. Depression. 8. Anxiety. 9. Arthritis. PAST SURGICAL HISTORY: She has had a right total knee replacement done in January, she has had a left knee ACL repair, she has now had a left total knee replacement, she has had a hysterectomy and she has had now a history of a breast biopsy. HOME MEDICATIONS: According to the preop list and we need to clarify a few of the medications. Question if she is still taking the Embeda. According to her primary's notes, she is only taking MS Contin. In addition to this, we also need to clarify she is still taking the Trental CR 400 t.i.d., this was prescribed according to Dr Bonilla. This was prescribed back in November and it is unclear if she is still taking it. We need to clarify these medications, but the list that I have in front of me: 1. Methotrexate 6 tablets p.o. monthly. 2. Ventolin 2 puffs inhaled every 4 hours as needed. 3. Albuterol 2.5 mg inhaled every 4 hours as needed. 4. Remeron 15 mg p.o. q.p.m. 5. Colace 1 capsule p.o. q.p.m. 6. MiraLAX 17 g p.o. daily. 7. Morphine 15 mg every 4 hours as needed. 8. Folic acid 1 tablet p.o. daily. 9. Pravachol 1 tablet p.o. daily. 10. Trental CR 400 mg p.o. t.i.d. 11. Xanax 0.5 mg p.o. t.i.d. 12. Colace 100 mg p.o. b.i.d. 13. Advair 1 puff inhaled b.i.d. 14. Famotidine 20 mg daily. 15. Lexapro 20 mg p.o. daily. 16. Furosemide 1 tablet daily. 17. Plaquenil 200 mg p.o. daily. 18. Patanol 1 drop both eyes q.a.m. 19. Omeprazole 20 mg daily. 20. Dyazide 1 capsule p.o. daily. 21. Compazine 10 mg p.o. b.i.d. as needed. 22. Oxygen 4 L both nares at bedtime. 23. Compazine 10 mg p.o. daily as needed. 24. Loratadine 10 mg daily. 25. Flexeril 10 mg p.o. b.i.d. as needed. 26. Morphine/naltrexone. Brand name is Embeda 1 capsule p.o. daily that is 100 /4 mg mix and then she is also taking morphine/naltrexone 60/2.4 mg tablet 1 tablet p.o. b.i.d. ALLERGIES TO MEDICATIONS: Include CODEINE and ULTRACET. FAMILY HISTORY: Her mother had a history of cirrhosis. She said her father of old age. SOCIAL HISTORY: She does still continue to smoke an e-cigarette. She does drink about 6 beers a week. Her surrogate decision maker is her daughter-in- law. REVIEW OF SYSTEMS: There is no documented fever. She denied any significant weight change. No double vision, no ear discharge, no rhinorrhea, no sore throat, no thyroid enlargement. She denied having any chest pain. There was no orthopnea. There was no nocturnal dyspnea. She denies having any abdominal discomfort. Denies having any nausea or vomiting. Denies any lightheadedness, denies any loss of consciousness. Denies any pruritus. Denies any skin ulcerations. Review of 14 systems completed, all others were negative. PHYSICAL EXAM: Vital Signs: Blood pressure 95/61, pulse 69, respirations 18, O2 sat 96% on 4 L, temperature 97.2. Generally at this time, Ms. Culver is a 52- year- old female patient, she is sitting in the PACU bed. She does not appear to be in any acute distress. HEENT: Head is atraumatic. Eyes: Sclerae are anicteric and not pale. Neck was supple. Throat: Oral mucosa appears to be dry at this time. No oropharyngeal erythema. Heart: Sounds S1, S2. Regular rate and rhythm. No murmurs, rubs, or gallops. Lungs: Clear to auscultation bilaterally. No wheezes, rales, or rhonchi. Abdomen: Soft, flat, nontender. Bowel sounds were present. Extremities: Pulses were 2+ throughout. She is moving upper extremities with 5/5 strength. She cannot quite move the lower extremities just yet due to the spinal and the epidural, but distal CSM checks are intact. Neurologically, she is awake, alert, oriented x3. Tongue midline. Appeals Board Referee were equal. No gross focal deficits. Skin: Intact. DIAGNOSTIC STUDIES/LAB DATA: Preop labs. WBC of 6.7, RBC of 4.45, hemoglobin of 11.4, hematocrit of 36, platelet count 272,000. INR 0.9. Sodium 138, potassium 3.5, chloride 98, bicarb 33, BUN 14, creatinine 0.91, glucose 95, lactic 1. AST 17, ALT 17. Urine preop showed 3+ leukocyte esterase, 3+ wbc's. Urine culture preop was negative. Preop EKG shows a normal sinus rhythm, rate of 78, no ST elevation or T-wave inversions. She had a preop chest x-ray, impression: Hyperinflation, no active cardiopulmonary disease. Old medical records were reviewed. ASSESSMENT AND PLAN: Ms. Culver is a 52-year-old female patient coming into the orthopedic services today for an elective total knee replacement. We were asked to evaluate in consult. My recommendations at this point are: 1. Status post left total knee replacement. I defer the management to Dr. Ace and her team. 2. Hypertension. I am going to go ahead and hold the patient's antihypertensives as she has an epidural. We will follow her closely and reinstate these when able. 3. Chronic obstructive pulmonary disease. Continue her nebulizers as prescribed. She appears to be stable and continue her O2 at night. 4. History of scleroderma. We will continue her medications as prescribed. 5. History of aortic stenosis. She can follow up with Dr. Taylor with any prolonged hypotension. We will try to avoid prolonged hypotension. 6. Hyperlipidemia. Continue statin therapy. 7. Depression and anxiety. Continue medications as prescribed. 8. Gastroesophageal reflux disease. Continue her H2 therapy, she is on famotidine. 9. DVT prophylaxis. I will defer to the primary team. 10. Code status. She is full code. 11. Fluids, electrolytes, and nutrition. I would recommend a heart-healthy diet. TIME SPENT: On the consult was approximately 60 minutes; greater than half the time spent [id number] with the patient, obtaining my history and physical, the other half time was spent going over the plan of care with the patient and implementing plan of care. I did discuss the plan of care with my attending, Dr. Jeffers; he is in agreement. MIKI BAUM NP [id number]/CPS #: [id number] MTDD
[2017-06-09] MEDS ORDERED: oxyCODONE/Acetamin 5/325 MG* TAB PO PRN (23:15)
[2017-06-09] MEDS: ceFAZolin 1 GM VIAL(*) 1 GM in NS 0.9% 50 ML* 50 ML IVPB SCH (23:22)
[2017-06-09] MEDS: Docusate CAP* 100 MG PO SCH (23:26)
[2017-06-09] MEDS: oxyCODONE TAB* 5 MG TAB PO PRN (23:27)
[2017-06-09] MEDS: Mometasone/Formoter 200/5 MDI INH SCH (23:31)
[2017-06-09] MEDS: Magnesium Hydroxide LIQ* 30 ML UDC PO SCH (23:33)
[2017-06-10] MEDS: oxyCODONE/Acetamin 5/325 MG* TAB PO PRN ×5 (01:31→20:59)
[2017-06-10] MEDS: oxyCODONE TAB* 5 MG TAB PO PRN ×3 (03:32→17:59)
[2017-06-10] MEDS ORDERED: Morphine INJ* 4 MG/ML 1 ML CARPUJECT IV PRN (05:50)
[2017-06-10] MEDS ORDERED: Morphine INJ* 2 MG/ML 1 ML SYRINGE (TWO MG - NEW SYRINGE VERSION) IV PRN (05:50)
[2017-06-10] MEDS ORDERED: Ondansetron INJ* 2 MG/ML VIAL IV PRN (06:00)
[2017-06-10] MEDS: ceFAZolin 1 GM VIAL(*) 1 GM in NS 0.9% 50 ML* 50 ML IVPB SCH ×2 (06:04→14:47)
[2017-06-10 06:46] LABS: ABS Basophils 0 10^3/ul (0-0.2); ABS Eosinophils 0 10^3/ul (0-0.6); ABS Lymphocytes 0.5 10^3/ul (1.0-4.8); ABS Monocytes 0.6 10^3/ul (0-0.8); ABS Neutrophils 9.4 10^3/ul (1.5-7.7); ABS Nucleated RBC 0 10^3/ul; Eosinophil % 0 % (0-6); Hematocrit 32 % (35-47); Hemoglobin 10.2 g/dl (12.0-16.0); Lymphocyte % 4.6 % (25-47); Mean Corpuscular HGB Conc 32 g/dl (31-36); Mean Corpuscular Hemoglobin 26 pg (27-31); Mean Corpuscular Volume 80 fL (80-97); Mean Platelet Volume 7 um3 (7.4-10.4); Nucleated Red Blood Cells % 0; Platelet Count 269 10^3/ul (150-450); Red Blood Count 3.95 10^6/ul (4.0-5.4); Red Cell Distribution Width 20 % (10.5-15); White Blood Count 10.5 10^3/ul (3.5-10.8)
[2017-06-10 06:59] LABS: INR 1.02 (0.77-1.02)
[2017-06-10 07:01] LABS: EGFR Non-African American 58.5 (>60)
[2017-06-10] MEDS: Omeprazole CAP* 20 MG PO SCH (07:20)
--- NOTE | 2017-06-10 07:43 | PN ---
Progress Note - Progress Note Date of Service: 06/10/17 SOAP: Subjective: Pt. is alert, c/o severe pain. Objective: LLE - drain removed, tip intact. distally +df/pf full sens lt, 2+ dp pulse Vital Signs: Temp Pulse Resp BP Pulse Ox 98.7 F 88 18 151/66 94 06/10/17 03:57 06/10/17 03:57 06/10/17 07:30 06/10/17 03:57 06/10/17 03:57 Laboratory Results - last 24 hr 06/10/17 06/10/17 06/10/17 06:31 06:31 06:31 WBC 10.5 RBC 3.95 L Hgb 10.2 L Hct 32 L MCV 80 MCH 26 L MCHC 32 RDW 20 H Plt Count 269 MPV 7 L Neut % (Auto) 89.7 H Lymph % (Auto) 4.6 L Wright % (Auto) 5.5 Eos % (Auto) 0 Baso % (Auto) 0.2 Absolute Neuts (auto) 9.4 H Absolute Lymphs (auto) 0.5 L Absolute Monos (auto) 0.6 Absolute Eos (auto) 0 Absolute Basos (auto) 0 Absolute Nucleated RBC 0 Nucleated RBC % 0 INR (Anticoag Therapy) 1.02 Sodium 133 Potassium 3.6 Chloride 99 L Carbon Dioxide 28 Anion Gap 6 BUN 16 Creatinine 0.99 H Est GFR ( Amer) 75.2 Est GFR (Non-Af Amer) 58.5 BUN/Creatinine Ratio 16.2 Glucose 144 H Calcium 9.0 Assessment: 52 yo F pod 1 s/p LTKA Plan: wbat lle pt/ot lovenox today and coumadin tonight xanax ordered - home med added ER morphine and switched IV morph to dilaudid for improved pain control
[2017-06-10] MEDS: Citalopram TAB* 40 MG PO SCH (08:36)
[2017-06-10] MEDS: Folic Acid TAB* 1 MG PO SCH (08:36)
[2017-06-10] MEDS: ALPRAZolam TAB* 0.5 MG PO PRN ×2 (08:36→18:00)
[2017-06-10] MEDS: Vitamin THERAPEUTIC TAB PO SCH (08:36)
[2017-06-10] MEDS: Docusate CAP* 100 MG PO SCH ×2 (08:36→19:52)
[2017-06-10] MEDS: Famotidine TAB* 20 MG PO SCH (08:36)
[2017-06-10] MEDS: Morphine TAB Extended Release (*) 30 MG TAB.ER PO SCH ×2 (08:36→19:52)
[2017-06-10] MEDS: Hydroxychloroquine TAB* 200 MG PO SCH ×2 (08:36→16:54)
[2017-06-10] MEDS: Atorvastatin* 10 MG TAB PO SCH (08:37)
[2017-06-10] MEDS: Magnesium Hydroxide LIQ* 30 ML UDC PO SCH ×2 (08:37→19:53)
[2017-06-10] MEDS: Mometasone/Formoter 200/5 MDI INH SCH ×2 (08:38→20:02)
[2017-06-10] MEDS: OLOPATADINE 0.2% BOTH EYES SCH (08:38)
[2017-06-10] MEDS ORDERED: Mouth Piece, Nicotine* 1 EACH CARTRIDGE INH PRN (08:59)
[2017-06-10] MEDS: Triamterene/HCTZ 37.5-25 MG* CAP PO SCH (10:22)
[2017-06-10] MEDS: HYDROmorphone INJ* 2 MG/ML CARPUJECT SYRINGE IV SLOW PU PRN ×3 (10:27→19:51)
--- NOTE | 2017-06-10 11:29 | PN ---
Subjective Date of Service: 06/10/17 Interval History: Patient complains of 15/10 pain in left knee, though she is not in any apparent distress at the time of examination. Patient also feels constipated but like she has to have a bowel movement. Patient states that she is nauseated from the pain and has been unable to eat. Patient has not urinated yet after having her bennett catheter removed but does not feel like she needs to urinate yet. Patient denies changes in vision, CP, SOB, abdominal pain, F/C, vomiting, or other pain. Patient feels like she is not ready to go home tomorrow and expressed concern about her ability to care for herself at home. Family History: Unchanged from Admission Social History: Unchanged from Admission Past Medical History: Unchanged from Admission Objective Active Medications: Acetaminophen (Tylenol Tab*) 650 mg PO Q4H PRN PRN Reason: PAIN OR TEMPERATURE Albuterol (Ventolin 2.5 Mg/3 Ml Neb.Obdulia*) 2.5 mg INH Q4H PRN PRN Reason: SOB/WHEEZING Albuterol (Ventolin Hfa Inhaler*) 2 puff INH Q4H PRN PRN Reason: SOB/WHEEZING Alprazolam (Xanax Tab*) 1 mg PO TID PRN PRN Reason: AGITATION Last Admin: 06/10/17 08:36 Dose: 1 mg Atorvastatin Calcium (Lipitor*) 10 mg PO DAILY [facility] PRN Reason: Protocol Last Admin: 06/10/17 08:37 Dose: 10 mg Bisacodyl (Dulcolax Supp*) 10 mg MA DAILY PRN PRN Reason: constipation Citalopram Hydrobromide (Celexa Tab*) 40 mg PO DAILY [facility] Last Admin: 06/10/17 08:36 Dose: 40 mg Device (Nicotine Mouth Piece*) 1 each INH .USE WITH NICOTROL PRN PRN Reason: CRAVING Diphenhydramine HCl (Benadryl Iv*) 25 mg IV Q6H PRN PRN Reason: itching Docusate Sodium (Colace Cap*) 100 mg PO BID [facility] Last Admin: 06/10/17 08:36 Dose: 100 mg Enoxaparin Sodium (Lovenox(*)) 30 mg SUBCUT Q24H [facility] Famotidine (Pepcid Tab*) 20 mg PO QAM [facility] Last Admin: 06/10/17 08:36 Dose: 20 mg Folic Acid (Folvite Tab*) 1 mg PO QAM [facility] Last Admin: 06/10/17 08:36 Dose: 1 mg Hydromorphone HCl (Dilaudid Inj*) 2 mg IV SLOW PU Q4H PRN PRN Reason: PAIN Last Admin: 06/10/17 10:27 Dose: 2 mg Hydroxychloroquine Sulfate (Plaquenil Tab*) 200 mg PO BID WITH MEALS [facility] Last Admin: 06/10/17 08:36 Dose: 200 mg Cefazolin Sodium 1 gm/ Sodium (Chloride) 50 mls @ 200 mls/hr IVPB Q8H [facility] Stop: 06/10/17 14:44 Last Admin: 06/10/17 06:04 Dose: 200 mls/hr Lactated Ringer's (Lactated Ringers 1000 Ml Bag*) 1,000 mls @ 100 mls/hr IV PER RATE [facility] Last Admin: 06/10/17 10:26 Dose: 100 mls/hr Magnesium Hydroxide (Milk Of Magnesia Liq*) 30 ml PO BID [facility] Last Admin: 06/10/17 08:37 Dose: 30 ml Magnesium Hydroxide (Milk Of Magnesia Liq*) 30 ml PO Q6H PRN PRN Reason: constipation Mometasone Furoate/Formoterol Fumar (Dulera 200/5 Mdi*) 2 puff INH BID [facility] Last Admin: 06/10/17 08:38 Dose: 2 puff Morphine Sulfate (Ms Contin(*)) 30 mg PO Q12H [facility] Last Admin: 06/10/17 08:36 Dose: 30 mg Multivitamins (Theragran Tab*) 1 tab PO DAILY [facility] Last Admin: 06/10/17 08:36 Dose: 1 tab Naloxone HCl (Narcan*) 0.08 mg IV Q2M PRN PRN Reason: severe induced resp depression Stop: 06/10/17 22:48 Nicotine (Nicotine Inhaler*) 10 mg INH Q2H PRN PRN Reason: CRAVING Olopatadine HCl (Pataday 0.2% (Nf)) 1 drop BOTH EYES QAM [facility] PRN Reason: Protocol Last Admin: 06/10/17 08:38 Dose: 1 drop Omeprazole (Prilosec Cap*) 20 mg PO DAILY@0730 [facility] Last Admin: 06/10/17 07:20 Dose: 20 mg Ondansetron HCl (Zofran Inj*) 4 mg IV Q6H PRN PRN Reason: nausea Oxycodone HCl (Roxycodone Tab*) 10 mg PO Q4H PRN PRN Reason: PAIN - SEVERE Last Admin: 06/10/17 07:30 Dose: 10 mg Oxycodone/Acetaminophen (Percocet 5/325 Tab*) 2 tab PO Q4H PRN PRN Reason: PAIN - MODERATE TO SEVERE Last Admin: 06/10/17 05:32 Dose: 2 tab Oxycodone/Acetaminophen (Percocet 5/325 Tab*) 1 tab PO Q4H PRN PRN Reason: PAIN - MODERATE Pharmacy Profile Note (Coumadin Daily Reminder*) 1 note FOLLOW UP 1700 [facility] Polyethylene Glycol/Electrolytes (Miralax*) 17 gm PO QPM [facility] Triamterene/HCTZ (Dyazide Cap*) 1 cap PO QAM [facility] Last Admin: 06/10/17 10:22 Dose: 1 cap Warfarin Sodium (Coumadin Tab(*)) 8 mg PO ONCE@1700 ONE PRN Reason: Protocol Stop: 06/10/17 17:01 Vital Signs - 8 hr 06/10/17 06/10/17 06/10/17 03:25 03:32 03:57 Temperature 98.7 F Pulse Rate 88 Respiratory 18 20 16 Rate Blood Pressure 151/66 (mmHg) O2 Sat by Pulse 94 Oximetry 06/10/17 06/10/17 06/10/17 05:32 06:14 07:18 Temperature Pulse Rate Respiratory 18 18 18 Rate Blood Pressure (mmHg) O2 Sat by Pulse Oximetry 06/10/17 06/10/17 06/10/17 07:27 07:30 08:00 Temperature 99.0 F Pulse Rate 81 Respiratory 18 18 18 Rate Blood Pressure 152/73 (mmHg) O2 Sat by Pulse 95 95 Oximetry 06/10/17 06/10/17 06/10/17 08:35 08:36 10:21 Temperature Pulse Rate Respiratory 18 18 20 Rate Blood Pressure (mmHg) O2 Sat by Pulse Oximetry 06/10/17 06/10/17 10:27 11:11 Temperature Pulse Rate Respiratory 18 18 Rate Blood Pressure (mmHg) O2 Sat by Pulse Oximetry Oxygen Devices in Use Now: None Appearance: Patient is a 52yo female who appears stated age and is sitting in the chair in NAD. Eyes: No Scleral Icterus, PERRLA Ears/Nose/Mouth/Throat: NL Teeth, Lips, Gums, Clear Oropharnyx, Mucous Membranes Moist Neck: NL Appearance and Movements; NL JVP, Trachea Midline Respiratory: Symmetrical Chest Expansion and Respiratory Effort, Clear to Auscultation Cardiovascular: NL Sounds; No Murmurs; No JVD, RRR, - - 1+ edema in LLE. Pulses 2+ in B/L radial, PT/DP areas. Abdominal: No Hepatosplenomegaly, - - BS normal, non-dinstended. Tender to deep palpation in LUQ Lymphatic: No Cervical Adenopathy Extremities: No Clubbing, Cyanosis Skin: No Nodules or Sclerosis, - - Telangectasias on cheeks. Neurological: Alert and Oriented x 3, NL Sensation, NL Muscle Strength and Tone - CN II-XII grossly intact., - Result Diagrams: 06/10/17 06:31 06/10/17 06:31 Assess/Plan/Problems-Billing Assessment: Patient is a 52yo female with a PMH significant for HTN, HLD, Scleroderma, COPD who is POD #1 after a LTHA and is doing well except for uncontrolled pain. - Patient Problems (1) Status post total left knee replacement Current Visit: Yes Status: Acute Code(s): Z96.652 - PRESENCE OF LEFT ARTIFICIAL KNEE JOINT SNOMED Code(s): 1146978383623 Comment: POD #1. Pain uncontrolled, pain management with morphine and dilaudid as per ortho. Patient constipated, bowel regimen per ortho. No urination 2 hours after bennett removal, will monitor. H/H stable, asymptomatic. PT/OT. Patient interested in VNS. (2) Chronic pain Current Visit: No Status: Acute Code(s): G89.29 - OTHER CHRONIC PAIN SNOMED Code(s): 86142480 Comment: Patient takes significant doses of morphine ER and IR at home. Pain management per ortho. (3) Hyperlipidemia Current Visit: No Status: Acute Code(s): E78.5 - HYPERLIPIDEMIA, UNSPECIFIED SNOMED Code(s): 76963738 Comment: Substitute atorvastatin for pravastatin. (4) Aortic stenosis Current Visit: No Status: Chronic Code(s): I35.0 - NONRHEUMATIC AORTIC ( VALVE) STENOSIS SNOMED Code(s): 04008727 Comment: Follows with cardiology, mild on exam. No plan for intervention. (5) CKD (chronic kidney disease) Current Visit: No Status: Chronic Code(s): N18.9 - CHRONIC KIDNEY DISEASE, UNSPECIFIED SNOMED Code(s): 038830180 Comment: Appears to be at baseline, likely due to scleroderma. Stage 3 (6) COPD (chronic obstructive pulmonary disease) Current Visit: No Status: Chronic Code(s): J44.9 - CHRONIC OBSTRUCTIVE PULMONARY DISEASE, UNSPECIFIED SNOMED Code(s): 75973185 Comment: No signs of exacerbation at this time Continue O2 @ 4L via NC overnight, this is Pt's baseline Continue advair and albuterol nebs PRN (7) GERD (gastroesophageal reflux disease) Current Visit: No Status: Chronic Code(s): K21.9 - GASTRO-ESOPHAGEAL REFLUX DISEASE WITHOUT ESOPHAGITIS SNOMED Code(s): 721778782 Comment: Continue famotidine (8) HTN (hypertension) Current Visit: No Status: Chronic Code(s): I10 - ESSENTIAL (PRIMARY) HYPERTENSION SNOMED Code(s): 94466873 Comment: Normotensive Hypertensive, resume Dyazide, continue to hold lasix. (9) Scleroderma Current Visit: No Status: Chronic Code(s): M34.9 - SYSTEMIC SCLEROSIS, UNSPECIFIED SNOMED Code(s): 77712904 Comment: Continue methotrexate and hydroxychloroquine. (10) Hyperglycemia Current Visit: Yes Status: Acute Code(s): R73.9 - HYPERGLYCEMIA, UNSPECIFIED SNOMED Code(s): 69292500 Comment: Intermittently hyperglycemic on lab work. No documented history of hyperglycemia. Will add on HgbA1c. (11) DVT prophylaxis Current Visit: No Status: Acute Code(s): JHZ3777 - SNOMED Code(s): 604214362 Comment: Lovenox bridge to warfarin per Ortho (12) Full code status Current Visit: No Status: Acute Code(s): Z78.9 - OTHER SPECIFIED HEALTH STATUS SNOMED Code(s): 757354247 Status and Disposition: Patient is admitted inpatient. Disposition per Ortho.
[2017-06-10] MEDS: Nicotine Inhaler* 10 MG AMP INH PRN ×2 (11:37→14:57)
[2017-06-10] MEDS: Pentoxifylline CR TAB* 400 MG PO SCH ×2 (14:47→20:54)
[2017-06-10] MEDS ORDERED: Enoxaparin(*) 30 MG/0.3 ML SYR SUBCUT SCH (16:00)
[2017-06-10] MEDS: Polyethylene Glycol 3350* 17 GM PACKET PO SCH (16:57)
[2017-06-10] MEDS ORDERED: Warfarin TAB(*) 4 MG PO ONE (17:00)
[2017-06-10] MEDS ORDERED: OXYGEN BOTH NARES SCH (18:00)
[2017-06-10] MEDS ORDERED: Docusate CAP* 100 MG PO SCH (18:00)
--- NOTE | 2017-06-10 20:57 | OP ---
DATE OF OPERATION: 06/09/17 - ROOM #347 DATE OF : 61 SURGEON: Opal Ace MD DEVELOPER EVANGELIST: JANETH Kelly. Magana did help throughout the procedure with preparation of the leg, wound retraction, manipulation of the knee, and wound closure. ANESTHESIOLOGIST: Dr. Boucher. ANESTHESIA: Spinal plus adductor nerve block. PRE-OP DIAGNOSIS: Severe end-stage degenerative osteoarthritis of the left knee joint. POST-OP DIAGNOSIS: Severe end-stage degenerative osteoarthritis of the left knee joint. OPERATIVE PROCEDURE: Left total knee arthroplasty. TOURNIQUET TIME: 46 minutes. ESTIMATED BLOOD LOSS: 250 cc. COMPLICATIONS: None. SPECIMEN: Bone and cartilage from the left knee joint sent to Pathology. HARDWARE USED: This is cemented [employer] total knee arthroplasty hardware with two packages of bone cement from [employer]. For the femur, a left size 5 narrow posterior stabilized Legion component. For the tibia, size 3 left tibial baseplate. For the insert, a 9-mm posterior stabilized articular insert, size 3-4 and for the patella, a 32-mm 3-peg all poly patella with 7.5 thickness. BRIEF HISTORY/INDICATIONS: Ms. Culver is a 52-year-old female with years of increasingly severe left knee pain. Radiographs showed [id number] arthritis. The patient failed conservative treatment with anti-inflammatories, pain medications, physical therapy, and intra-articular injections. She elected to undergo left total knee arthroplasty due to continued pain and decreased quality of life. Informed consent was obtained from the patient. She understood all the risks of surgery, included but were not limited to bleeding, infection, damage to nearby structures, continued pain, need for further surgery, intraoperative fracture, nerve palsy, hardware failure or loosening, knee stiffness, loss of motion, stroke, heart attack, blood clot, and . She wished to proceed. INTRAOPERATIVE FINDINGS: Intraoperatively, the patient was noted to have a large intraarticular bodies where the ACL would normally reside which did have a diameter that she had loss of cartilage in all 3 compartments. DESCRIPTION OF PROCEDURE: Ms. Culver was identified in the preanesthesia unit. Her left lower extremity was marked as the correct operative side. Informed consent was obtained from the patient. The patient was taken to the operating room and placed under spinal anesthesia with an adductor nerve block. A Olson catheter was placed. Tourniquet was placed on the left thigh. Left lower extremity was prepped and draped in the usual sterile fashion. Preop time-out was made to correctly identify the patient's side and site. Appropriate perioperative antibiotics were given within 1 hour of incision. Tourniquet was inflated and total tourniquet time for this procedure was 46 minutes. A 10 blade was used to make a 12-cm midline incision and this was carried sharply down to the extensor mechanism. A new 10 blade was used to make a standard medial parapatellar arthrotomy. The patella was subluxed laterally. Electrocautery was used to elevate soft tissue off the superomedial tibia to the midsagittal plane. The knee was flexed up. A large anterior calcified loose body was excised. This was 3 cm in diameter. There was no ACL. The anterior horn of the lateral meniscus was carefully released. A drill was used to enter the distal femur. Intramedullary distal femoral cutting guide was pinned into position and oscillating saw was used to make the distal femoral cut. Next, the external rotation guide was pinned on the distal femur. Distal femur was sized to a size 5. Size 5 multi-cutting jig was pinned on the distal femur. The oscillating saw was used to make the appropriate 4 chamfer cuts. The PCL was completely released. The tibia was subluxed anteriorly. Extramedullary tibial cutting guide was pinned on the proximal tibia. The oscillating saw was used to make the proximal tibial cut perpendicular to the mechanical axis of the tibia. The bone was carefully removed. The knee was brought out into full extension. The spacer block had good fit. The medial and lateral ligaments were well balanced. Flexion and extension gaps were well balanced. The knee was flexed up. Lamina casino banker was placed both medially and laterally. Electrocautery was used to remove any remaining meniscus. A curved osteotome was used to remove posterior osteophytes. Tibial tray and drop reyes were placed to once again confirm satisfactory tibial cut and this was confirmed. A left size 5 narrow femur trial was impacted on to the distal femur and had excellent fit. The box for the posterior stabilized implant was prepared using a reamer and box-cut osteotome. A size 3 tibial tray trial was a 9-mm insert trial was placed and the knee was brought out into full extension. The knee had full extension to 130 degrees of flexion with satisfactory patellofemoral tracking. The patella was everted. The patella was quite thin. A 7-mm of patellar bone and cartilage was removed with an oscillating saw. The patella was sized to a size 32. Three peg holes were drilled through the size 32 guide. Size 32 thin patella trial was placed and the knee was taken through a range of motion. There was satisfactory patellofemoral tracking. All trials were carefully removed. The tibia was subluxed anteriorly and sized to a size 3. Proximal tibia was prepared using a size 3 keel punch. All bony cut surfaces were copiously irrigated with sterile saline and dried. Final implants were cemented in order of tibia first, next femur, next patella. A 9- mm insert trial was placed and the knee was brought out into full extension. The tourniquet was turned down at 46 minutes. The cement was allowed to fully cure. The knee was copiously irrigated with sterile saline. Electrocautery was used to obtain meticulous hemostasis. Once the cement had fully cured, the insert trial was removed. Any excess cement was removed from around the hardware and capsule. Final implant chosen was a 9-mm posterior stabilized articular insert size 3-4. This was locked into position on the tibial tray. Stability of the insert was checked and rechecked and noted to be stable. The knee was once again copiously irrigated with sterile saline. The extensor mechanism was closed using interrupted #1 Vicryls over a medium Hemovac drain. The rest of the incision was closed in a layered fashion using 0 and 2-0 Vicryls. Skin was closed using running 3-0 nylon suture. Sterile Xeroform, 4x4s, and Webril were used to cover the incision. Gavin wrap and cold packs were placed over this. The patient's anesthesia was reversed without difficulty. She was taken to the PACU in stable condition. Intended weightbearing will be weightbearing as tolerated. Intended DVT prophylaxis will be Coumadin with a Lovenox bridge. [id number]/[facility] #: [id number] MARIANNE
[2017-06-11] MEDS: HYDROmorphone INJ* 2 MG/ML CARPUJECT SYRINGE IV SLOW PU PRN ×4 (00:14→15:43)
[2017-06-11] MEDS: Nicotine Inhaler* 10 MG AMP INH PRN ×2 (00:15→16:04)
[2017-06-11] MEDS: oxyCODONE TAB* 5 MG TAB PO PRN ×3 (01:22→20:17)
[2017-06-11] MEDS: oxyCODONE/Acetamin 5/325 MG* TAB PO PRN ×5 (02:37→23:31)
[2017-06-11] MEDS: ALPRAZolam TAB* 0.5 MG PO PRN ×2 (02:38→09:33)
[2017-06-11 06:34] LABS: Hematocrit 30 % (35-47); Hemoglobin 9.8 g/dl (12.0-16.0); Mean Platelet Volume 8 um3 (7.4-10.4); Platelet Count 257 10^3/ul (150-450)
[2017-06-11 06:40] LABS: INR 1.76 (0.77-1.02)
[2017-06-11 06:50] LABS: EGFR Non-African American 71.6 (>60)
[2017-06-11] MEDS: Morphine TAB Extended Release (*) 30 MG TAB.ER PO SCH ×3 (07:44→20:18)
[2017-06-11] MEDS: Omeprazole CAP* 20 MG PO SCH (07:44)
[2017-06-11] MEDS: Mometasone/Formoter 200/5 MDI INH SCH ×2 (08:00→20:19)
--- NOTE | 2017-06-11 08:06 | PN ---
Progress Note - Progress Note Date of Service: 06/11/17 SOAP: Subjective: []patient seen at bedside. she remains in 9 pain of her left knee. Denies chest pain, SOB, dizziness of nausea. Objective: [] Vital Signs Temp 100.0 F 06/11/17 11:10 Pulse 85 06/11/17 11:10 Resp 16 06/11/17 15:43 BP 140/62 06/11/17 11:10 Pulse Ox 99 06/11/17 11:10 Intake & Output 06/10/17 06/11/17 06/11/17 18:59 06:59 18:59 Intake Total 2598 1420 480 Output Total 825 1925 350 Balance 1773 -505 130 Intake: IV Fluids 1478 ABX - CEFAZOLIN 112 LR 1366 Oral 1120 1420 480 Output: Urine 825 1925 350 Other: Estimated Void Large Medium Small # Bowel Movements 1 1 Estimated Stool Amount Medium Large # Voids 1 1 Laboratory Last Values WBC 10.5 10^3/ul (3.5-10.8) 06/10/17 06:31 RBC 3.95 10^6/ul (4.0-5.4) L 06/10/17 06:31 Hgb 9.8 g/dl (12.0-16.0) L 06/11/17 06:24 Hct 30 % (35-47) L 06/11/17 06:24 MCV 80 fL (80-97) 06/10/17 06:31 MCH 26 pg (27-31) L 06/10/17 06:31 MCHC 32 g/dl (31-36) 06/10/17 06:31 RDW 20 % (10.5-15) H 06/10/17 06:31 Plt Count 257 10^3/ul (150-450) 06/11/17 06:24 MPV 8 um3 (7.4-10.4) 06/11/17 06:24 Neut % (Auto) 89.7 % (38-83) H 06/10/17 06:31 Lymph % (Auto) 4.6 % (25-47) L 06/10/17 06:31 [place] % (Auto) 5.5 % (1-9) 06/10/17 06:31 Eos % (Auto) 0 % (0-6) 06/10/17 06:31 Baso % (Auto) 0.2 % (0-2) 06/10/17 06:31 Absolute Neuts (auto) 9.4 10^3/ul (1.5-7.7) H 06/10/17 06:31 Absolute Lymphs (auto) 0.5 10^3/ul (1.0-4.8) L 06/10/17 06:31 Absolute Monos (auto) 0.6 10^3/ul (0-0.8) 06/10/17 06:31 Absolute Eos (auto) 0 10^3/ul (0-0.6) 06/10/17 06:31 Absolute Basos (auto) 0 10^3/ul (0-0.2) 06/10/17 06:31 Absolute Nucleated RBC 0 10^3/ul 06/10/17 06:31 Nucleated RBC % 0 06/10/17 06:31 INR (Anticoag Therapy) 1.76 (0.77-1.02) H 06/11/17 06:24 Sodium 132 mmol/L (133-145) L 06/11/17 06:24 Potassium 3.9 mmol/L (3.5-5.0) 06/11/17 06:24 Chloride 98 mmol/L (101-111) L 06/11/17 06:24 Carbon Dioxide 29 mmol/L (22-32) 06/11/17 06:24 Anion Gap 5 mmol/L (2-11) 06/11/17 06:24 BUN 8 mg/dL (6-24) 06/11/17 06:24 Creatinine 0.83 mg/dL (0.51-0.95) 06/11/17 06:24 Est GFR ( Amer) 92.1 (>60) 06/11/17 06:24 Est GFR (Non-Af Amer) 71.6 (>60) 06/11/17 06:24 BUN/Creatinine Ratio 9.6 (8-20) 06/11/17 06:24 Glucose 142 mg/dL (70-100) H 06/11/17 06:24 Hemoglobin A1c 5.7 % (4.0-5.6) H 06/10/17 06:31 Calcium 9.3 mg/dL (8.6-10.3) 06/11/17 06:24 General: well appearing, NAD LLE: dressing changed. Incision CDI without erythema or discharge. DP2+. DF/PF intact BL LE: Calves supple and nontender without erythema or edema or palpable cords. Assessment: []sp left total knee arthroplasty Plan: []WBAT PT/OT Lovenox, Coumadin 3 mg DC when bed available: Awaiting bed: [facility], [facility] or [facility].
[2017-06-11] MEDS: Citalopram TAB* 40 MG PO SCH (09:28)
[2017-06-11] MEDS: Pentoxifylline CR TAB* 400 MG PO SCH ×3 (09:28→20:18)
[2017-06-11] MEDS: Vitamin THERAPEUTIC TAB PO SCH (09:28)
[2017-06-11] MEDS: Hydroxychloroquine TAB* 200 MG PO SCH ×2 (09:28→17:15)
[2017-06-11] MEDS: OLOPATADINE 0.2% BOTH EYES SCH (09:28)
[2017-06-11] MEDS: Famotidine TAB* 20 MG PO SCH (09:28)
[2017-06-11] MEDS: Atorvastatin* 10 MG TAB PO SCH (09:28)
[2017-06-11] MEDS: Triamterene/HCTZ 37.5-25 MG* CAP PO SCH (09:28)
[2017-06-11] MEDS: Folic Acid TAB* 1 MG PO SCH (09:29)
[2017-06-11] MEDS: Docusate CAP* 100 MG PO SCH ×2 (09:30→20:18)
[2017-06-11] MEDS: Magnesium Hydroxide LIQ* 30 ML UDC PO SCH ×2 (09:30→20:19)
[2017-06-11] MEDS ORDERED: Morphine TAB Extended Release (*) 30 MG TAB.ER PO ONE (11:43)
--- NOTE | 2017-06-11 13:04 | PN ---
Subjective Date of Service: 06/11/17 Interval History: Patient continues to be in pain at 15/10 with no pain medication and 9/10 with pain medication. Patient again in no distress when conveying this at time of interview. Patient states she had a couple episodes of diarrhea but that was after significant laxatives. Patient states she feels warm and had a temperature of 100.4. Patient denies KABA, CP, SOB, N/V, Abdominal pain, Dysuria, Chills, or other pain. Family History: Unchanged from Admission Social History: Unchanged from Admission Past Medical History: Unchanged from Admission Objective Active Medications: Acetaminophen (Tylenol Tab*) 650 mg PO Q4H PRN PRN Reason: PAIN OR TEMPERATURE Albuterol (Ventolin 2.5 Mg/3 Ml Neb.Obdulia*) 2.5 mg INH Q4H PRN PRN Reason: SOB/WHEEZING Albuterol (Ventolin Hfa Inhaler*) 2 puff INH Q4H PRN PRN Reason: SOB/WHEEZING Alprazolam (Xanax Tab*) 1 mg PO TID PRN PRN Reason: AGITATION Last Admin: 06/11/17 09:33 Dose: 1 mg Atorvastatin Calcium (Lipitor*) 10 mg PO DAILY [facility] PRN Reason: Protocol Last Admin: 06/11/17 09:28 Dose: 10 mg Bisacodyl (Dulcolax Supp*) 10 mg IA DAILY PRN PRN Reason: constipation Citalopram Hydrobromide (Celexa Tab*) 40 mg PO DAILY [facility] Last Admin: 06/11/17 09:28 Dose: 40 mg Device (Nicotine Mouth Piece*) 1 each INH .USE WITH NICOTROL PRN PRN Reason: CRAVING Last Admin: 06/10/17 11:37 Dose: 1 each Diphenhydramine HCl (Benadryl Iv*) 25 mg IV Q6H PRN PRN Reason: itching Docusate Sodium (Colace Cap*) 100 mg PO BID [facility] Last Admin: 06/11/17 09:30 Dose: Not Given Famotidine (Pepcid Tab*) 20 mg PO QAM [facility] Last Admin: 06/11/17 09:28 Dose: 20 mg Folic Acid (Folvite Tab*) 1 mg PO QAM [facility] Last Admin: 06/11/17 09:29 Dose: 1 mg Hydromorphone HCl (Dilaudid Inj*) 2 mg IV SLOW PU Q4H PRN PRN Reason: PAIN Last Admin: 06/11/17 10:44 Dose: 2 mg Hydroxychloroquine Sulfate (Plaquenil Tab*) 200 mg PO BID WITH MEALS [facility] Last Admin: 06/11/17 09:28 Dose: 200 mg Magnesium Hydroxide (Milk Of Magnesia Liq*) 30 ml PO BID [facility] Last Admin: 06/11/17 09:30 Dose: Not Given Magnesium Hydroxide (Milk Of Magnesia Liq*) 30 ml PO Q6H PRN PRN Reason: constipation Mometasone Furoate/Formoterol Fumar (Dulera 200/5 Mdi*) 2 puff INH BID [facility] Last Admin: 06/11/17 08:00 Dose: 2 puff Morphine Sulfate (Ms Contin(*)) 30 mg PO Q12H [facility] Stop: 06/11/17 20:00 Last Admin: 06/11/17 07:44 Dose: 30 mg Morphine Sulfate (Ms Contin(*)) 60 mg PO Q12H [facility] Multivitamins (Theragran Tab*) 1 tab PO DAILY [facility] Last Admin: 06/11/17 09:28 Dose: 1 tab Nicotine (Nicotine Inhaler*) 10 mg INH Q2H PRN PRN Reason: CRAVING Last Admin: 06/11/17 00:15 Dose: 10 mg Olopatadine HCl (Pataday 0.2% (Nf)) 1 drop BOTH EYES QAM [facility] PRN Reason: Protocol Last Admin: 06/11/17 09:28 Dose: 1 drop Omeprazole (Prilosec Cap*) 20 mg PO DAILY@0730 [facility] Last Admin: 06/11/17 07:44 Dose: 20 mg Ondansetron HCl (Zofran Inj*) 4 mg IV Q6H PRN PRN Reason: nausea Oxycodone HCl (Roxycodone Tab*) 10 mg PO Q4H PRN PRN Reason: PAIN - SEVERE Last Admin: 06/11/17 05:24 Dose: 10 mg Oxycodone/Acetaminophen (Percocet 5/325 Tab*) 2 tab PO Q4H PRN PRN Reason: PAIN - MODERATE TO SEVERE Last Admin: 06/11/17 12:07 Dose: 2 tab Oxycodone/Acetaminophen (Percocet 5/325 Tab*) 1 tab PO Q4H PRN PRN Reason: PAIN - MODERATE Pentoxifylline (Trental Cr Tab*) 400 mg PO TID [facility] Last Admin: 06/11/17 09:28 Dose: 400 mg Pharmacy Profile Note (Coumadin Daily Reminder*) 1 note FOLLOW UP 1700 [facility] Last Admin: 06/10/17 16:56 Dose: 1 note Polyethylene Glycol/Electrolytes (Miralax*) 17 gm PO QPM [facility] Last Admin: 06/10/17 16:57 Dose: Not Given Triamterene/HCTZ (Dyazide Cap*) 1 cap PO QAM [facility] Last Admin: 06/11/17 09:28 Dose: 1 cap Warfarin Sodium (Coumadin Tab(*)) 3 mg PO ONCE@1700 ONE PRN Reason: Protocol Stop: 06/11/17 17:01 Vital Signs - 8 hr 06/11/17 06/11/17 06/11/17 05:24 05:25 07:38 Temperature Pulse Rate Respiratory 17 17 18 Rate Blood Pressure (mmHg) O2 Sat by Pulse Oximetry 06/11/17 06/11/17 06/11/17 07:43 07:44 07:47 Temperature 100.1 F Pulse Rate 83 Respiratory 18 18 12 Rate Blood Pressure 145/62 (mmHg) O2 Sat by Pulse 100 Oximetry 06/11/17 06/11/17 06/11/17 08:00 09:30 09:31 Temperature Pulse Rate Respiratory 20 22 22 Rate Blood Pressure (mmHg) O2 Sat by Pulse Oximetry 06/11/17 06/11/17 06/11/17 09:33 10:44 11:10 Temperature 100.0 F Pulse Rate 85 Respiratory 22 20 12 Rate Blood Pressure 140/62 (mmHg) O2 Sat by Pulse 99 Oximetry 06/11/17 06/11/17 12:07 12:08 Temperature Pulse Rate Respiratory 20 20 Rate Blood Pressure (mmHg) O2 Sat by Pulse Oximetry Oxygen Devices in Use Now: None Appearance: Patient is a 52yo female who appears older than stated age and is sitting in the bed in [facility]. Eyes: No Scleral Icterus, PERRLA Ears/Nose/Mouth/Throat: NL Teeth, Lips, Gums, Clear Oropharnyx, Mucous Membranes Moist Neck: NL Appearance and Movements; NL JVP, Trachea Midline Respiratory: Symmetrical Chest Expansion and Respiratory Effort, Clear to Auscultation, - - Diminished Cardiovascular: RRR, - - Grade 2/6 systolic ejection murmur heard best at RUSB. Pulses 2+ in B/L Radial, PT/DP areas. 1+ edema in B/L LE symmetrically. Abdominal: NL Sounds; No Tenderness; No Distention, No Hepatosplenomegaly Lymphatic: No Cervical Adenopathy Skin: - - Telangectasias on face. CDI surgical incision on left knee covered with bulky dressing. Neurological: Alert and Oriented x 3, NL Sensation, NL Muscle Strength and Tone , - - CN II-XII intact Result Diagrams: 06/11/17 06:24 06/11/17 06:24 Assess/Plan/Problems-Billing Assessment: Patient is a 52yo female with a PMH significant for HTN, HLD, Scleroderma, COPD who is S/P a LTHA and is doing well except for uncontrolled pain. - Patient Problems (1) Status post total left knee replacement Current Visit: Yes Status: Acute Code(s): Z96.652 - PRESENCE OF LEFT ARTIFICIAL KNEE JOINT SNOMED Code(s): 7665078627911 Comment: POD #2. Pain uncontrolled, pain management with morphine and dilaudid. Increased MS Contin because patient is still well below her home dose of morphine. Patient had a BM and urinated. H/H stable, asymptomatic. PT/OT. Patient interested in [facility]. (2) Chronic pain Current Visit: No Status: Acute Code(s): G89.29 - OTHER CHRONIC PAIN SNOMED Code(s): 70287243 Comment: Patient takes significant doses of morphine ER and IR at home. Increase MS contin to 30mg PO BID. Patient takes 160mg total at home ER plus 60mg IR. (3) Hyperlipidemia Current Visit: No Status: Acute Code(s): E78.5 - HYPERLIPIDEMIA, UNSPECIFIED SNOMED Code(s): 39642960 Comment: Substitute atorvastatin for pravastatin. (4) Aortic stenosis Current Visit: No Status: Chronic Code(s): I35.0 - NONRHEUMATIC AORTIC ( VALVE) STENOSIS SNOMED Code(s): 59869073 Comment: Follows with cardiology, mild on exam. No plan for intervention. (5) CKD (chronic kidney disease) Current Visit: No Status: Chronic Code(s): N18.9 - CHRONIC KIDNEY DISEASE, UNSPECIFIED SNOMED Code(s): 300010021 Comment: Appears to be around baseline, likely due to scleroderma. Cret .83. (6) COPD (chronic obstructive pulmonary disease) Current Visit: No Status: Chronic Code(s): J44.9 - CHRONIC OBSTRUCTIVE PULMONARY DISEASE, UNSPECIFIED SNOMED Code(s): 04601309 Comment: No signs of exacerbation at this time Continue O2 @ 4L via NC overnight, this is Pt's baseline Continue advair and albuterol nebs PRN (7) GERD (gastroesophageal reflux disease) Current Visit: No Status: Chronic Code(s): K21.9 - GASTRO-ESOPHAGEAL REFLUX DISEASE WITHOUT ESOPHAGITIS SNOMED Code(s): 924967786 Comment: Continue famotidine (8) HTN (hypertension) Current Visit: No Status: Chronic Code(s): I10 - ESSENTIAL (PRIMARY) HYPERTENSION SNOMED Code(s): 95988134 Comment: Normotensive Hypertensive, resume Dyazide, continue to hold lasix. (9) Scleroderma Current Visit: No Status: Chronic Code(s): M34.9 - SYSTEMIC SCLEROSIS, UNSPECIFIED SNOMED Code(s): 28625759 Comment: Continue methotrexate and hydroxychloroquine. (10) Hyperglycemia Current Visit: Yes Status: Acute Code(s): R73.9 - HYPERGLYCEMIA, UNSPECIFIED SNOMED Code(s): 67360561 Comment: Intermittently hyperglycemic on lab work. No documented history of hyperglycemia. HgbA1c 5.7 indicating low end of prediabetic range. (11) DVT prophylaxis Current Visit: No Status: Acute Code(s): QIA5893 - SNOMED Code(s): 071566790 Comment: Lovenox bridge to warfarin per Ortho (12) Full code status Current Visit: No Status: Acute Code(s): Z78.9 - OTHER SPECIFIED HEALTH STATUS SNOMED Code(s): 463674137 Status and Disposition: Patient is admitted inpatient. Disposition per Ortho.
[2017-06-11] MEDS ORDERED: Warfarin TAB(*) 3 MG PO ONE (17:00)
[2017-06-11] MEDS: Polyethylene Glycol 3350* 17 GM PACKET PO SCH (17:15)
--- NOTE | 2017-06-11 17:41 | PN ---
Progress Note - Progress Note Date of Service: 06/11/17 SOAP: Subjective: [] Patient seen OOB in chair. She continues to report 9/10 L knee pain. Denies CP or SOB Objective: []General: NAD, calm and cooperative LLE: Dressing changed. Incision CDI. DP/PT 2+. DF/PF intact. Sensation intact distally BL LE: calves supple and nontender without erythema, edema or palpable cords Vital Signs Temp 97.9 F 06/11/17 15:56 Pulse 87 06/11/17 15:56 Resp 18 06/11/17 17:13 BP 142/66 06/11/17 15:56 Pulse Ox 97 06/11/17 15:56 Intake & Output 06/10/17 06/11/17 06/11/17 18:59 06:59 18:59 Intake Total 2598 1420 480 Output Total 825 1925 350 Balance 1773 -505 130 Intake: IV Fluids 1478 ABX - CEFAZOLIN 112 LR 1366 Oral 1120 1420 480 Output: Urine 825 1925 350 Other: Estimated Void Large Medium Small # Bowel Movements 1 1 Estimated Stool Amount Medium Large # Voids 1 1 Laboratory Last Values WBC 10.5 10^3/ul (3.5-10.8) 06/10/17 06:31 RBC 3.95 10^6/ul (4.0-5.4) L 06/10/17 06:31 Hgb 9.8 g/dl (12.0-16.0) L 06/11/17 06:24 Hct 30 % (35-47) L 06/11/17 06:24 MCV 80 fL (80-97) 06/10/17 06:31 MCH 26 pg (27-31) L 06/10/17 06:31 MCHC 32 g/dl (31-36) 06/10/17 06:31 RDW 20 % (10.5-15) H 06/10/17 06:31 Plt Count 257 10^3/ul (150-450) 06/11/17 06:24 MPV 8 um3 (7.4-10.4) 06/11/17 06:24 Neut % (Auto) 89.7 % (38-83) H 06/10/17 06:31 Lymph % (Auto) 4.6 % (25-47) L 06/10/17 06:31 [place] % (Auto) 5.5 % (1-9) 06/10/17 06:31 Eos % (Auto) 0 % (0-6) 06/10/17 06:31 Baso % (Auto) 0.2 % (0-2) 06/10/17 06:31 Absolute Neuts (auto) 9.4 10^3/ul (1.5-7.7) H 06/10/17 06:31 Absolute Lymphs (auto) 0.5 10^3/ul (1.0-4.8) L 06/10/17 06:31 Absolute Monos (auto) 0.6 10^3/ul (0-0.8) 06/10/17 06:31 Absolute Eos (auto) 0 10^3/ul (0-0.6) 06/10/17 06:31 Absolute Basos (auto) 0 10^3/ul (0-0.2) 06/10/17 06:31 Absolute Nucleated RBC 0 10^3/ul 06/10/17 06:31 Nucleated RBC % 0 06/10/17 06:31 INR (Anticoag Therapy) 1.76 (0.77-1.02) H 06/11/17 06:24 Sodium 132 mmol/L (133-145) L 06/11/17 06:24 Potassium 3.9 mmol/L (3.5-5.0) 06/11/17 06:24 Chloride 98 mmol/L (101-111) L 06/11/17 06:24 Carbon Dioxide 29 mmol/L (22-32) 06/11/17 06:24 Anion Gap 5 mmol/L (2-11) 06/11/17 06:24 BUN 8 mg/dL (6-24) 06/11/17 06:24 Creatinine 0.83 mg/dL (0.51-0.95) 06/11/17 06:24 Est GFR ( Amer) 92.1 (>60) 06/11/17 06:24 Est GFR (Non-Af Amer) 71.6 (>60) 06/11/17 06:24 BUN/Creatinine Ratio 9.6 (8-20) 06/11/17 06:24 Glucose 142 mg/dL (70-100) H 01/11/18 06:24 Hemoglobin A1c 5.7 % (4.0-5.6) H 06/10/17 06:31 Calcium 9.3 mg/dL (8.6-10.3) 06/11/17 06:24 Assessment: []POD 2 sp left total knee arthroplasty Plan: []WBAT PT/oT lovenox, coumadin 3 mg Awaiting bed offer. DC when available
[2017-06-12] MEDS: oxyCODONE TAB* 5 MG TAB PO PRN (03:49)
[2017-06-12] MEDS: Nicotine Inhaler* 10 MG AMP INH PRN ×2 (04:58→12:39)
[2017-06-12 07:16] LABS: Hematocrit 32 % (35-47); Hemoglobin 10.2 g/dl (12.0-16.0); Mean Platelet Volume 8 um3 (7.4-10.4); Platelet Count 280 10^3/ul (150-450)
[2017-06-12 07:23] LABS: INR 2.65 (0.77-1.02)
[2017-06-12] MEDS: Omeprazole CAP* 20 MG PO SCH (07:46)
[2017-06-12] MEDS: Morphine TAB Extended Release (*) 30 MG TAB.ER PO SCH (07:46)
[2017-06-12] MEDS: Hydroxychloroquine TAB* 200 MG PO SCH (07:46)
[2017-06-12] MEDS: oxyCODONE/Acetamin 5/325 MG* TAB PO PRN ×2 (09:31→13:21)
[2017-06-12] MEDS: Docusate CAP* 100 MG PO SCH (09:32)
[2017-06-12] MEDS: Vitamin THERAPEUTIC TAB PO SCH (09:32)
[2017-06-12] MEDS: Folic Acid TAB* 1 MG PO SCH (09:32)
[2017-06-12] MEDS: Atorvastatin* 10 MG TAB PO SCH (09:32)
[2017-06-12] MEDS: Citalopram TAB* 40 MG PO SCH (09:32)
[2017-06-12] MEDS: Triamterene/HCTZ 37.5-25 MG* CAP PO SCH (09:32)
[2017-06-12] MEDS: Famotidine TAB* 20 MG PO SCH (09:32)
[2017-06-12] MEDS: Magnesium Hydroxide LIQ* 30 ML UDC PO SCH (09:33)
[2017-06-12] MEDS: Pentoxifylline CR TAB* 400 MG PO SCH ×2 (09:34→13:19)
[2017-06-12] MEDS: OLOPATADINE 0.2% BOTH EYES SCH (09:35)
[2017-06-12] MEDS: Mometasone/Formoter 200/5 MDI INH SCH (09:35)
--- NOTE | 2017-06-12 12:37 | DS ---
DATE OF ADMISSION: 06/09/2017. DATE OF DISCHARGE: 06/12/2017. ATTENDING SURGEON: Dr. Opal Ace* (dictated by JANETH Ayala). REASON FOR ADMISSION: Left knee pain. CHIEF COMPLAINT: 1. Left knee pain. 2. Hypertension. 3. COPD. 4. GERD. 5. Scleroderma. 6. Aortic stenosis. DISCHARGE DIAGNOSES: 1. Status post left total knee arthroplasty. 2. Hypertension. 3. COPD. 4. GERD. 5. Scleroderma. 6. Aortic stenosis. PROCEDURE: Left total knee arthroplasty. CONSULTATIONS: 1. Physical Therapy. 2. Occupational Therapy. 3. Medicine. BRIEF HISTORY: The patient is a pleasant, 52-year-old female with left knee pain secondary to end-stage osteoarthritis who elected to undergo a left total knee arthroplasty with Dr. Ace on 06/09/2017. HOSPITAL COURSE: The patient was admitted to [facility] on 2017 where she underwent a left total knee arthroplasty which was uncomplicated. Postoperatively, she recovered on the Surgical Short Stay Unit. On postoperative day two, her Olson was removed and she was voiding on her own without difficulty. She was advanced to a regular diet and her pain was controlled with Oxycodone prn as well as Morphine extended release 60 mg b.i.d. She advanced appropriately with physical therapy and occupational therapy. Her DVT prophylaxis was managed with Lovenox and Coumadin until she reached a therapeutic INR. By postoperative day three, she was orthopedically and medically cleared for discharge to go home with home services. PHYSICAL EXAMINATION: General: Well-appearing, no acute distress, alert and oriented. Vital Signs: Temperature 98.5, pulse 98, respirations 16, oxygen saturation 100 percent on room air, blood pressure 150/65. Examination of the left lower extremity showed the surgical incision over the anterior aspect of the knee which was clean, dry and intact. New dressing was placed. There was no erythema, drainage or clinical signs of infection. The patient had active dorsiflexion and plantarflexion bilaterally with 2+ palpable and posterior tibial pulses and intact sensation to light touch bilateral lower extremities. LABORATORY DATA ON THE DATE OF DISCHARGE: Included, H and H of 10.2 and 32 with an INR of 2.65. RADIOGRAPHS: Postoperative films showed an appropriately placed left arthroplasty. DISCHARGE MEDICATIONS: 1. Acetaminophen 650 mg p.o. q.4 hours prn pain/fever, not to exceed over 4, 000 mg a day. 2. Albuterol nebulizer 2.5 mg inhaled q.4 hours prn. 3. Albuterol inhaler two puffs inhalation every 4 hours prn. 4. Cephalexin 500 mg p.o. t.i.d. times 10 days. 5. Colace 100 mg p.o. b.i.d. 6. Lexapro 20 mg p.o. q.a.m. 7. Famotidine 20 mg p.o. q.a.m. 8. Advair Diskus 250/50 one puff inhalation b.i.d. 9. Folic acid one tablet p.o. q.a.m. 10. Plaquenil 200 mg p.o. b.i.d. 11. Morphine extended release 60 mg p.o. q.12 hours. 12. Nicotine inhaler 10 mg inhaled every 2 hours prn. 13. Patanol 0.1% ophthalmic drops one drop to both eyes q.a.m. 14. Prilosec 20 mg p.o. q.a.m. 15. Oxycodone 5 to 10 mg p.o. q.4 hours prn pain. 16. Trental CR 400 mg p.o. t.i.d. 17. MiraLax 17 gm p.o. q.p.m. prn. 18. Pravastatin 40 mg p.o. daily. 19. Triamterene/Hydrochlorothiazide 37.5/25 mg one tablet p.o. q.a.m. 20. Xanax 1 mg p.o. q.a.m., 0.5 mg at noon, 1 mg p.o. q.p.m. 21. Flexeril 10 mg p.o. b.i.d. prn. 22. Methotrexate 2.5 mg tablet 6 tablets p.o. MO. 23. Remeron 15 mg p.o. q.p.m. 24. Oxygen as needed prn. 25. Compazine 10 mg p.o. b.i.d. prn for nausea. 26. Coumadin 2 mg tablets daily at 5:00 per physician's instructions. CONDITION ON DISCHARGE: Stable. DISCHARGE INSTRUCTIONS: Ms. Culver is a very pleasant, 52-year-old female, postoperative day three status post left total knee arthroplasty which was uncomplicated. She is orthopedically and medically stable for discharge to [facility]. Her labs and vital signs are stable. She can restart her home medications. She will hold her dose of Coumadin tonight and will have 2 mg on both June 13 and June 14 with an INR check on June 15. She will remain weightbearing as tolerated on the left lower extremity. She will have physical therapy at [facility]. She will take Morphine extended release as well as Oxycodone prn for acute pain control. She will continue with Colace as needed for constipation and follow- up with Dr. Ace in approximately 10 to 14 days for incision check and suture removal. She was instructed to go to the ER should she develop chest pain or shortness of breath, and should she develop fever, increasing pain, or redness to call the office immediately. She was started on Keflex in the hospital for erythema around the incision site and will continue this for a ten day course. JANETH AYALA [id number]/[facility] #: [id number] MARIANNE
[2017-06-12 12:39] VITALS: BP 133/60
[2017-06-12] MEDS ORDERED: Cephalexin CAP* 500 MG PO SCH (14:00)
--- NOTE | 2017-06-12 14:29 | PN ---
Progress Note - Progress Note Date of Service: 06/12/17 SOAP: Subjective: 52 yo female s/p L total knee replacement 06/[address] Ace. Patient reports feeling well, increased pain then prior replacement but overall controlled. VSS afebrile overnight. Objective: General- well appearing, NAD AO MSK- L knee dressing removed, incision c/d/i, no drainage noted, moderate erythema extending medially, moderate warmth. neg homans, + DF/PF, SITLT b/l. Vital Signs Temp 98.2 F 06/12/17 11:42 Pulse 90 06/12/17 11:42 Resp 16 06/12/17 13:21 BP 133/60 06/12/17 11:42 Pulse Ox 94 06/12/17 11:42 Intake & Output 06/11/17 06/12/17 06/12/17 18:59 06:59 18:59 Intake Total 930 1400 120 Output Total 350 0 0 Balance 580 1400 120 Intake: Oral 930 1400 120 Output: Urine 350 0 0 Other: Estimated Void Medium Large Estimated Stool Amount Medium # Voids 1 Assessment: Stable 52 yo female s/p L total knee replacement 06/[address] Ace. Plan: - DVT prophylaxis- coumadin as outpatient - Continue PT - D/C to [facility] today - Follow up with Dr. Ace within 10 days
== END 2017-06-12 13:40 | DRG 470 ==
LOC: AA 10:29 → SSU 21:51
PROVIDERS: ADMIT Orthopaedic Surgery Adult Reconstructive Orthopaedic Surgery; ATTEND Internal Medicine
PROC: 0SRD0J9 Replacement of Left Knee Joint with Synthetic Substitute, Cemented, Open Approach (ICD-10-PCS; principal; 2017-06-09 13:00)
DX: M17.12 Unilateral primary osteoarthritis, left knee (principal); M34.9 Systemic sclerosis, unspecified; J44.9 Chronic obstructive pulmonary disease, unspecified; K21.9 Gastro-esophageal reflux disease without esophagitis; F17.290 Nicotine dependence, other tobacco product, uncomplicated; E78.5 Hyperlipidemia, unspecified; I35.0 Nonrheumatic aortic (valve) stenosis; I12.9 Hypertensive chronic kidney disease with stage 1 through stage 4 chronic kidney disease, or unspecified chronic kidney disease; F41.9 Anxiety disorder, unspecified; R73.9 Hyperglycemia, unspecified; N18.9 Chronic kidney disease, unspecified; Z79.899 Other long term (current) drug therapy; Z88.5 Allergy status to narcotic agent; Z88.8 Allergy status to other drugs, medicaments and biological substances; Z83.3 Family history of diabetes mellitus; Z80.9 Family history of malignant neoplasm, unspecified; Z82.49 Family history of ischemic heart disease and other diseases of the circulatory system; Z96.651 Presence of right artificial knee joint; M25.762 Osteophyte, left knee
CPT/HCPCS: 36415; 80048; 83036; 85014; 85018; 85025; 85049; 85610; 94640; A9270-GY; J0690; J1170; J1240; J1650; J2250; J2270; J2795; J3010